=== PATIENT | male | born 1935 ===

== ENCOUNTER 2019-08-03 09:26 | Inpatient (IN) | payer MEDICARE, OTHER ==
[2019-08-04 07:29] LABS: Bilirubin,Urine NEG (Negative); Blood,Urine NEG (Negative); Color,Urine Yellow (Yellow); Mucus,Urine FEW /HPF; Protein,Urine <15 mg/dL mg/dL (Negative); Urobilinogen,Urine < 2.0 mg/dL (<2.0)
[2019-08-04 07:51] LABS: Basophils # (Auto) 0.1 K/mm3 (0.0-0.1); Basophils % (Auto) 0.7 % (0.0-1.8); Eosinophils # (Auto) 0.4 K/mm3 (0.0-0.4); Eosinophils % (Auto) 4.6 % (0.0-4.3); Hematocrit 39.2 % (35.5-45.6); Hemoglobin 13.9 gm/dl (11.8-15.2); Lymphocytes # (Auto) 3.5 K/mm3 (1.2-5.4); Lymphocytes % (Auto) 37.8 % (13.4-35.0); Mean Corpuscular HGB Conc 35 % (32-34); Mean Corpuscular Volume 95 fl (84-94); Monocytes # (Auto) 0.7 K/mm3 (0.0-0.8); Monocytes % (Auto) 7.5 % (0.0-7.3); Platelet Count 238 K/mm3 (140-440); Red Blood Count 4.13 M/mm3 (3.65-5.03)
[2019-08-04 08:07] LABS: Alanine Aminotransferase 26 units/L (7-56); BUN/Creatinine Ratio 13; Blood Urea Nitrogen 10 mg/dL (9-20); Calcium 9.7 mg/dL (8.4-10.2); Chol/HDL Ratio 3.19 %; HDL Cholesterol 47 mg/dL (40-59); Hemolysis Index 11; LDL Cholesterol,Direct 83 mg/dL (50-130)
--- NOTE | 2019-08-04 09:39 | History and Physical Report ---
GP History & Physical - History of Present Illness Date of admission: 08/03/19 Date of Examination: 08/04/19 Reason for Admission: Danger to self, Danger to others, Impaired reality testing Chief Complaint: Suicidal Ideation History of Present Illness: Per admission Nurse: Pt brought in on a stretcher 1240, admitted to 515, a/ o x 2-3 for threatening to shoot himself and harm others. Pt. admits to suicidal and homicidal thoughts, but has no plan. Pt was very angry on getting here, he was trying to leave, stating that he will not stay here, staff spent a lot of time explaining things to him before he claimed down some. Pt. is very hard of hearing, history of Hypertension. dementia, sub aranoid bleed, skin cancer, cardiac catheterization and gall bladder removal. He refused to eat his meal, because he is very upset being here. His skin is intact, but has an old scar on his left posterior head, right abdomen and left thigh. Bruises on rt hand, Lt forearm/hand and rt knee. A tinny red scab on his Lt nose area. pT. ORIENTED TO UNIT AND HE SIGNED ALL ADMISSION DOCUMENTS and change of status to 1012 form. HPI Patient is an 83-year-old retired male with unknown past psychiatric history with past medical history of dementia, subarachnoid bleed, coronary artery disease who presents to the ED for evaluation of bizarre behavior with suicidal and homicidal ideation thoughts. Patient was able to state his name and age appropriately as he says he was born in 1936, and knows his in [facility]. Patient reports coming from home currently stays with his when asked why he is here patient reported he was told by the [employer] to come in for evaluation and was brought in by his . Patient self acknowledges having suicidal and homicidal ideations about 3 days ago said he it was because of life and was dealing with too many things which patient could not explain further. Patient denies any SI HI denies any auditory visual hallucination. Patient reports good sleep, good appetite, denies illicit drug use and denies any disinterest or irritation at the moment. Per patient medication history patient has past psychiatric history of depression. PAST PSYCHIATRIC HISTORY: Diagnoses: None reported Suicide attempts or Self-harm behavior: Denies attempts but SI Prior psychiatric hospitalizations: None reported Substance Abuse history: None reported Previous psychiatric medications tried: Sertraline, trazodone Outpatient treatment: None reported PAST MEDICAL HISTORY: CAD, high blood pressure, BPH Family Psychiatric History: None reported or documented SOCIAL HISTORY Marital Status: Living Arrangements: Lives with Employment Status: Retired Access to guns/weapons: None reported Education: College degree History of Abuse: None reported Legal History: None reported REVIEW OF SYSTEMS Constitutional: Negative for weight loss ENT: Negative for stridor Respiratory: Negative for cough or hemoptysis All other systems reviewed and are negative MENTAL STATUS EXAMINATION General Appearance and Behavior: Age appropriate, good hygiene, wearing appropriate clothes, lying in bed, good contact, cooperative and polite Cooperation: Participating/engaged Psychomotor Behavior:unremarkable and within normal limits Mood: Good Affect and affective range: Congruent with mood Thought Process: Fluent/Logical Thought Content: Within reality Speech: Normal volume, Regular rate and rhythm, pressured, loud volume, soft volume, stutter, paucity of speech, difficulty to understand, abnormalities in production of speech, confused and blocking Intellectual Functioning: Average Suicidal Ideation: Passive Suicidal Homicidal Ideation: Passive Homicidal Impulse Control: Impaired Insight and Judgment: Normal insight and judgment Memory: Normal Attention: Normal Orientation: Alert, oriented, Assessment and Plan - Psychiatric problem (1) Major depression in remission Current Visit: Yes Status: Acute (2) Dementia with behavioral disturbance Current Visit: Yes Status: Acute Physician Certification Treatment Plan Home medications restarted, Start Seroquel 50 mg twice daily, Venlafaxine 37.5 mg BID Patient will be admitted for inpatient psychiatric evaluation, medication adjustment and close monitoring The patient's behavior, mood, sleep and appetite will be closely monitored. Patient will be enrolled in individual and group therapeutic sessions and encouraged to attend. Patient will be provided with a safe and structured environment. Patient's physical health needs will be addressed by the Hospitalist. Hospitalist Consulted Labs including CBC, CMP, Lipid profile and Hemoglobin A1C ordered Social Assessment will be completed and the Speech Language Pathologist Prn will work with patient and family to ensure a suitable and safe disposition Medication adjustment will be made as clinically indicated Usual Wellness Religion/Preservation: - Start Trazodone 50 mg po QHS & 50 mg po QHS PRN between 10 PM & 2 AM for i nsomnia - Start Melatonin 5 mg po QHS to promote circadian rhythm - Start [place]-3 for brain health, reduce impulsivity, and as adjunctive treatment for mood disorder, continue upon discharge given overall benefits. - Start B1 prophylaxis with 200 mg po for 5 days The patient agreed on the treatment plan, understood the risk, benefit, alternative treatment, potential consequence of no treatment, and gave informed consent. - Certification Statement Physician Certification Statement: This is an acknowledgement statement that KIKA HILL is a 83 year old M who requires inpatient psychiatric admission for treatment which could reasonably be expected to improve the patient's condition for Estimated period of time patient will need to remain in the hospital: [7 ] Plan for post-hospital care: [ Outpatient] Legal Status: Voluntary Patient Problems: Current Active Problems Dementia with behavioral disturbance (Acute) Major depression in remission (Acute) Reaction to Hospitalization: Accepting Medications and Allergies Allergies Allergy/AdvReac Type Severity Reaction Status Date / Time No Known Allergies Allergy Unverified 08/03/19 18:43 Home Medications Medication Instructions Recorded Confirmed Last Taken Type Clopidogrel [Plavix] 75 mg PO DAILY 08/03/19 08/03/19 Unknown History Memantine HCl 10 mg PO BID 08/03/19 08/03/19 Unknown History Pravastatin [Pravachol] 20 mg PO QHS 08/03/19 08/03/19 Unknown History Rosuvastatin Calcium 20 mg PO DAILY 08/03/19 08/03/19 Unknown History Sertraline [Zoloft] 50 mg PO DAILY 08/03/19 08/03/19 Unknown History Tamsulosin [Flomax] 0.4 mg PO DAILY 08/03/19 08/03/19 Unknown History Venlafaxine [Effexor] 37.5 mg PO DAILY 08/03/19 08/03/19 Unknown History carvediloL [Coreg] 3.125 mg PO BID 08/03/19 08/03/19 Unknown History Ciprofloxacin HCl [Ciprofloxacin 500 mg PO Q12HR 08/04/19 08/04/19 08/02/19 History TAB] 500 mg Melatonin 5 mg PO QHS 08/04/19 08/04/19 Unknown History traZODone 50 mg PO QHS 08/04/19 08/04/19 Unknown History Results - Results Labs/Vitals: Laboratory Last Values WBC 9.2 K/mm3 (4.5-11.0) 08/04/19 07:24 RBC 4.13 M/mm3 (3.65-5.03) 08/04/19 07:24 Hgb 13.9 gm/dl (11.8-15.2) 08/04/19 07:24 Hct 39.2 % (35.5-45.6) 08/04/19 07:24 MCV 95 fl (84-94) H 08/04/19 07:24 MCH 34 pg (28-32) H 08/04/19 07:24 MCHC 35 % (32-34) H 08/04/19 07:24 RDW 14.0 % (13.2-15.2) 08/04/19 07:24 Plt Count 238 K/mm3 (140-440) 08/04/19 07:24 Lymph % (Auto) 37.8 % (13.4-35.0) H 08/04/19 07:24 [place] % (Auto) 7.5 % (0.0-7.3) H 08/04/19 07:24 Eos % (Auto) 4.6 % (0.0-4.3) H 08/04/19 07:24 Baso % (Auto) 0.7 % (0.0-1.8) 08/04/19 07:24 Lymph # 3.5 K/mm3 (1.2-5.4) 08/04/19 07:24 [place] # 0.7 K/mm3 (0.0-0.8) 08/04/19 07:24 Eos # 0.4 K/mm3 (0.0-0.4) 08/04/19 07:24 Baso # 0.1 K/mm3 (0.0-0.1) 08/04/19 07:24 Seg Neutrophils % 49.4 % (40.0-70.0) 08/04/19 07:24 Seg Neutrophils # 4.5 K/mm3 (1.8-7.7) 08/04/19 07:24 Sodium 140 mmol/L (137-145) 08/04/19 07:24 Potassium 3.9 mmol/L (3.6-5.0) 08/04/19 07:24 Chloride 104.2 mmol/L (98-107) 08/04/19 07:24 Carbon Dioxide 22 mmol/L (22-30) 08/04/19 07:24 Anion Gap 18 mmol/L 08/04/19 07:24 BUN 10 mg/dL (9-20) 08/04/19 07:24 Creatinine 0.8 mg/dL (0.8-1.5) 08/04/19 07:24 Estimated GFR > 60 ml/min 08/04/19 07:24 BUN/Creatinine Ratio 13 % 08/04/19 07:24 Glucose 105 mg/dL (75-100) H 08/04/19 07:24 POC Glucose 106 (70-105) H 08/03/19 14:25 Hemoglobin A1c 5.5 % (4-6) 08/04/19 07:24 Calcium 9.7 mg/dL (8.4-10.2) 08/04/19 07:24 Total Bilirubin 0.60 mg/dL (0.1-1.2) 08/04/19 07:24 AST 23 units/L (5-40) 08/04/19 07:24 ALT 26 units/L (7-56) 08/04/19 07:24 Alkaline Phosphatase 130 units/L (35-129) H 08/04/19 07:24 Total Protein 7.4 g/dL (6.3-8.2) 08/04/19 07:24 Albumin 4.0 g/dL (3.9-5) 08/04/19 07:24 Albumin/Globulin Ratio 1.2 % 08/04/19 07:24 Triglycerides 171 mg/dL (2-149) H 08/04/19 07:24 Cholesterol 150 mg/dL (50-199) 08/04/19 07:24 LDL Cholesterol Direct 83 mg/dL (50-130) 08/04/19 07:24 HDL Cholesterol 47 mg/dL (40-59) 08/04/19 07:24 Cholesterol/HDL Ratio 3.19 % 08/04/19 07:24 TSH 3.120 mlU/mL (0.270-4.200) 08/04/19 07:24 Thyroxine (T4) 6.6 ug/dL (4.0-12.0) 08/04/19 07:24 Urine Color Yellow (Yellow) 08/04/19 06:48 Urine Turbidity Clear (Clear) 08/04/19 06:48 Urine pH 6.0 (5.0-7.0) 08/04/19 06:48 Ur Specific Mobile 1.009 (1.003-1.030) 08/04/19 06:48 Urine Protein <15 mg/dl mg/dL (Negative) 08/04/19 06:48 Urine Glucose (UA) Neg mg/dL (Negative) 08/04/19 06:48 Urine Ketones Neg mg/dL (Negative) 08/04/19 06:48 Urine Blood Neg (Negative) 08/04/19 06:48 Urine Nitrite Neg (Negative) 08/04/19 06:48 Urine Bilirubin Neg (Negative) 08/04/19 06:48 Urine Urobilinogen < 2.0 mg/dL (<2.0) 08/04/19 06:48 Ur Leukocyte Esterase Neg (Negative) 08/04/19 06:48 Urine WBC (Auto) 3.0 /HPF (0.0-6.0) 08/04/19 06:48 Urine RBC (Auto) 4.0 /HPF (0.0-6.0) 08/04/19 06:48 Urine Mucus Few /HPF 08/04/19 06:48 Last Vital Signs Temp 98.3 F 08/04/19 08:37 Pulse 86 08/04/19 08:37 Resp 20 08/03/19 19:33 BP 136/98 08/04/19 08:37 Pulse Ox 95 08/04/19 08:37 Physical Examination - Constitutional Vitals: Vital Signs Temp Pulse Resp BP Pulse Ox 98.3 F 86 20 136/98 95 08/04/19 08:37 08/04/19 08:37 08/03/19 19:33 08/04/19 08:37 08/04/19 08:37 Temperature -Last 24 Hours Temperature 98.3 F Temperature 97.7 F Temperature 99.3 F Temperature 98.6 F Mental Status Exam - Vital signs Last Vital Signs Temp 98.3 F 08/04/19 08:37 Pulse 86 08/04/19 08:37 Resp 20 08/03/19 19:33 BP 136/98 08/04/19 08:37 Pulse Ox 95 08/04/19 08:37 Assessment and Plan - Psychiatric problem (1) Major depression in remission Current Visit: Yes Status: Acute (2) Dementia with behavioral disturbance Current Visit: Yes Status: Acute Physician Certification - Certification Statement Physician Certification Statement: This is an acknowledgement statement that KIKA HILL is a 83 year old M who requires inpatient psychiatric admission for treatment which could reasonably be expected to improve the patient's condition for Estimated period of time patient will need to remain in the hospital: [ ] Plan for post-hospital care: [ ]
[2019-08-04] MEDS: VENLAFAXINE 37.5 MG TAB PO SCH ×2 (10:17→21:32)
[2019-08-04] MEDS: TAMSULOSIN 0.4 MG CAP PO SCH (10:17)
[2019-08-04] MEDS: SULFAMETHOXAZOLE/TRIMETHOPRIM 800/160MG DS TAB PO SCH ×2 (10:17→21:29)
[2019-08-04] MEDS: QUEtiapine 25 MG TAB PO SCH ×2 (10:18→21:32)
[2019-08-04] MEDS: CLOPIDOGREL 75 MG TAB PO SCH (10:18)
[2019-08-04] MEDS: carvediloL 3.125 MG TAB PO SCH ×2 (10:18→21:30)
--- NOTE | 2019-08-04 11:32 | Consultation ---
History of Present Illness - Reason for Consult Consult date: 08/04/19 Medical mx - History of Present Illness Patient is an 83-year-old retired male with unknown past psychiatric history with past medical history of dementia, subarachnoid bleed, coronary artery disease who presents to the ED for evaluation of bizarre behavior with suicidal and homicidal ideation thoughts. Patient self acknowledges having suicidal and homicidal ideations, denies any auditory visual hallucination. Patient reports good sleep, good appetite, denies chest pain, SOB. Patient is currently admitted to inpatient psych unit and hospitalist service has been consulted for medical management. Review of System: Constitutional: no fever, no chills, no weight loss Ears, eyes, nose, mouth and throat: no nasal congestion, no nasal discharge, no sinus pressure, no vision change, no red eye. Neck: No neck pain or rigidity. Cardiovascular: No chest pain, no orthopnea, no palpitations, no leg swelling Respiratory: No shortness of breath, no cough, no congestion, no wheezing Gastrointestinal: no abdominal pain, no nausea, no vomiting Genitourinary : no dysuria, no hematuria Musculoskeletal: no joint swelling or muscle ache Integumentary: no rash, no pruritis Neurological: no parathesias, no numbness, no tingling Endocrine: no cold or heat intolerance, no polyuria or polydipsia Hematologic/Lymphatic: no easy bruising, no easy bleeding, no gland swelling Allergic/Immunologic: no urticaria, no angioedema. Past History Past Medical History: CAD, hypertension Past Surgical History: Other (cardiac cath) Social history: denies: smoking, alcohol abuse Family history: no significant family history Medications and Allergies Allergies Allergy/AdvReac Type Severity Reaction Status Date / Time No Known Allergies Allergy Unverified 08/03/19 18:43 Home Medications Medication Instructions Recorded Confirmed Last Taken Type Clopidogrel [Plavix] 75 mg PO DAILY 08/03/19 08/03/19 Unknown History Memantine HCl 10 mg PO BID 08/03/19 08/03/19 Unknown History Pravastatin [Pravachol] 20 mg PO QHS 08/03/19 08/03/19 Unknown History Rosuvastatin Calcium 20 mg PO DAILY 08/03/19 08/03/19 Unknown History Sertraline [Zoloft] 50 mg PO DAILY 08/03/19 08/03/19 Unknown History Tamsulosin [Flomax] 0.4 mg PO DAILY 08/03/19 08/03/19 Unknown History Venlafaxine [Effexor] 37.5 mg PO DAILY 08/03/19 08/03/19 Unknown History carvediloL [Coreg] 3.125 mg PO BID 08/03/19 08/03/19 Unknown History Ciprofloxacin HCl [Ciprofloxacin 500 mg PO Q12HR 08/04/19 08/04/19 08/02/19 Hist ory TAB] 500 mg Melatonin 5 mg PO QHS 08/04/19 08/04/19 Unknown History traZODone 50 mg PO QHS 08/04/19 08/04/19 Unknown History Active Meds: Active Medications Carvedilol (Coreg) 3.125 mg PO BID [facility] Last Admin: 08/04/19 10:18 Dose: 3.125 mg Documented by: Clopidogrel Bisulfate (Plavix) 75 mg PO QDAY [facility] Last Admin: 08/04/19 10:18 Dose: 75 mg Documented by: Melatonin (Melatonin) 5 mg PO QHS@2100 [facility] Methylphenidate HCl (Ritalin) 10 mg PO BID@0800,1500 [facility] Quetiapine Fumarate (Seroquel) 50 mg PO BID [facility] Last Admin: 08/04/19 10:18 Dose: 50 mg Documented by: Tamsulosin HCl (Flomax) 0.4 mg PO QDAY [facility] Last Admin: 08/04/19 10:17 Dose: 0.4 mg Documented by: Trazodone HCl (Desyrel) 50 mg PO QHS [facility] Trimethoprim/Sulfamethoxazole (Bactrim Ds) 1 each PO Q12HR [facility] Stop: 08/07/19 10:59 Last Admin: 08/04/19 10:17 Dose: 1 each Documented by: Venlafaxine HCl (Effexor) 37.5 mg PO BID [facility] Last Admin: 08/04/19 10:17 Dose: 37.5 mg Documented by: Exam - Physical Exam Narrative exam: GENERAL: well-developed and well-nourished elderly white male lying on bed memo eared to be in no discomfort. HEENT: Normocephalic. Atraumatic. No conjunctival congestion or icterus. Patient has moist mucous membranes. NECK: Supple. Trachea midline. CHEST/LUNGS: Clear to auscultated bilaterally, breathing nonlabored. No wheezes crackles or rhonchi. HEART/CARDIOVASCULAR: Regular in rate and rhythm. S1 and S2 positive. ABDOMEN: Abdomen is soft, nontender. Patient has normal bowel sounds. SKIN: There is no rash. Warm and dry. NEURO: No focal motor deficit. Follows command. MUSCULOSKELETAL: No joint effusion or tenderness. EXTRIMITY: No edema, no cyanosis or clubbing. PSYCH: Cooperative. - Constitutional Vitals: Temp Pulse Resp BP Pulse Ox 98.3 F 86 20 136/98 95 08/04/19 08:37 08/04/19 10:18 08/03/19 19:33 08/04/19 10:18 08/04/19 08:37 Results - Labs CBC & Chem 7: 08/04/19 07:24 08/04/19 07:24 Labs: Abnormal lab results 08/03/19 08/04/19 08/04/19 Range/Units 14:25 07:24 07:24 MCV 95 H (84-94) fl MCH 34 H (28-32) pg MCHC 35 H (32-34) % Lymph % (Auto) 37.8 H (13.4-35.0) % [place] % (Auto) 7.5 H (0.0-7.3) % Eos % (Auto) 4.6 H (0.0-4.3) % Glucose 105 H (75-100) mg/dL POC Glucose 106 H (70-105) Alkaline Phosphatase 130 H (35-129) units/L Triglycerides 171 H (2-149) mg/dL Assessment and Plan Suicidal attempt History of depression - Mx per primary History of subarachnoid bleed -No acute issue, stable Other chronic issues CAD, HTN, BPH, HLD - cont medical Mx
[2019-08-04] MEDS: METHYLPHENIDATE 5 MG TAB PO SCH (15:23)
[2019-08-04] MEDS: traZODone 50 MG TAB PO SCH (21:34)
[2019-08-04] MEDS: MELATONIN 5 MG TAB PO SCH (23:17)
--- NOTE | 2019-08-05 07:28 | Progress Note ---
Subjective Date of service: 08/05/19 Principal diagnosis: Dementia/Suicidal thoughts Subjective Comment: The patient's medical record was reviewed at the patient's progress was discussed with the nursing staff. The nurse note states the patient is calm and cooperative with staff. The patient is compliant with medication. Sometime the patient is confused and disoriented, asking how he can get out. The patient sometime, walks about in hallway with wheelchair. He needs constant redirections. He denies si/hi. The patient spoke with his on the phone several times asking when he can get out of here. The patient did not attend groups. During my interview with the patient he was lying in bed asleep. Easily arouses. He is confused. He makes fair eye contact. He says his night "went good." When asking the patient why he was admitted into the hospital, he replied "I don't know." He says his appetite is "good" and denies any problems with his sleep. When asked about any suicidal thoughts, the patient first replied, "no." He then said, "I don't know." I asked the patient again, was he having any thoughts of self harm, he then replied, "last night, but no, not this morning." He denies having a plan. He denies hallucinations of any kind. Reason for continued inpatient treatment: The patient continues to have thoughts of self harm. REVIEW OF SYSTEMS Constitutional: Negative for weight loss ENT: Negative for stridor Respiratory: Negative for cough or hemoptysis All other systems reviewed and are negative MENTAL STATUS EXAMINATION General Appearance: Lying in bed. Dressed appropriately Behavior: Calm and cooperative. Fair eye contact. 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 Will continue q15 min safety checks. Will encourage the use of environmental modifications and non-pharmacologic approaches for the management of behavioral and psychological symptoms. Will continue current psych medications Monitor for medication side effects. Most recent medication adjustments: Increased Effexor 50mg po BID to decrease depressive symptoms The patient will continue on medications for physical illnesses, and Hospitalist will closely monitor these Continue intensive physical and occupational therapies. Monitor patient's mood, sleep, appetite, and behavior closely. Encourage patient to participate in individual and group therapeutic sessions on the [place]. The patient's behavior, mood, sleep and appetite will be closely monitored. Patient will be enrolled in individual and group therapeutic sessions and encouraged to attend. Patient will be provided with a safe and structured environment. Patient's physical health needs will be addressed by the Hospitalist. Hospitalist Consulted Labs including CBC, CMP, Lipid profile and Hemoglobin A1C ordered Social Assessment will be completed and the Actuarial Clerk will work with patient and family to ensure a suitable and safe disposition The patient agreed on the treatment plan, understood the risk, benefit, alternative treatment, potential consequence of no treatment, and gave informed consent. Estimated period of time patient will need to remain in the hospital: [5] Plan for post-hospital care: [ Outpatient] Medications and Allergies Allergies Allergy/AdvReac Type Severity Reaction Status Date / Time No Known Allergies Allergy Unverified 08/03/19 18:43 Home Medications Medication Instructions Recorded Confirmed Last Taken Type Clopidogrel [Plavix] 75 mg PO DAILY 08/03/19 08/03/19 Unknown History Memantine HCl 10 mg PO BID 08/03/19 08/03/19 Unknown History Pravastatin [Pravachol] 20 mg PO QHS 08/03/19 08/03/19 Unknown History Rosuvastatin Calcium 20 mg PO DAILY 08/03/19 08/03/19 Unknown History Sertraline [Zoloft] 50 mg PO DAILY 08/03/19 08/03/19 Unknown History Tamsulosin [Flomax] 0.4 mg PO DAILY 08/03/19 08/03/19 Unknown History Venlafaxine [Effexor] 37.5 mg PO DAILY 08/03/19 08/03/19 Unknown History carvediloL [Coreg] 3.125 mg PO BID 08/03/19 08/03/19 Unknown History Ciprofloxacin HCl [Ciprofloxacin 500 mg PO Q12HR 08/04/19 08/04/19 08/02/19 History TAB] 500 mg Melatonin 5 mg PO QHS 08/04/19 08/04/19 Unknown History traZODone 50 mg PO QHS 08/04/19 08/04/19 Unknown History Active Meds: Active Medications Carvedilol (Coreg) 3.125 mg PO BID [facility] Last Admin: 08/04/19 21:30 Dose: 3.125 mg Documented by: Clopidogrel Bisulfate (Plavix) 75 mg PO QDAY [facility] Last Admin: 08/04/19 10:18 Dose: 75 mg Documented by: Melatonin (Melatonin) 5 mg PO QHS@2100 [facility] Last Admin: 08/04/19 23:17 Dose: 5 mg Documented by: Methylphenidate HCl (Ritalin) 10 mg PO BID@0800,1500 [facility] Last Admin: 08/04/19 15:23 Dose: 10 mg Documented by: Quetiapine Fumarate (Seroquel) 50 mg PO BID [facility] Last Admin: 08/04/19 21:32 Dose: 50 mg Documented by: Tamsulosin HCl (Flomax) 0.4 mg PO QDAY [facility] Last Admin: 08/04/19 10:17 Dose: 0.4 mg Documented by: Trazodone HCl (Desyrel) 50 mg PO QHS [facility] Last Admin: 08/04/19 21:34 Dose: 50 mg Documented by: Trimethoprim/Sulfamethoxazole (Bactrim Ds) 1 each PO Q12HR [facility] Stop: 08/07/19 10:59 Last Admin: 08/04/19 21:29 Dose: 1 each Documented by: Venlafaxine HCl (Effexor) 37.5 mg PO BID [facility] Last Admin: 08/04/19 21:32 Dose: 37.5 mg Documented by: Results - Results Labs/Vitals: Laboratory Last Values WBC 9.2 K/mm3 (4.5-11.0) 08/04/19 07:24 RBC 4.13 M/mm3 (3.65-5.03) 08/04/19 07:24 Hgb 13.9 gm/dl (11.8-15.2) 08/04/19 07:24 Hct 39.2 % (35.5-45.6) 08/04/19 07:24 MCV 95 fl (84-94) H 08/04/19 07:24 MCH 34 pg (28-32) H 08/04/19 07:24 MCHC 35 % (32-34) H 08/04/19 07:24 RDW 14.0 % (13.2-15.2) 08/04/19 07:24 Plt Count 238 K/mm3 (140-440) 08/04/19 07:24 Lymph % (Auto) 37.8 % (13.4-35.0) H 08/04/19 07:24 [place] % (Auto) 7.5 % (0.0-7.3) H 08/04/19 07:24 Eos % (Auto) 4.6 % (0.0-4.3) H 08/04/19 07:24 Baso % (Auto) 0.7 % (0.0-1.8) 08/04/19 07:24 Lymph # 3.5 K/mm3 (1.2-5.4) 08/04/19 07:24 [place] # 0.7 K/mm3 (0.0-0.8) 08/04/19 07:24 Eos # 0.4 K/mm3 (0.0-0.4) 08/04/19 07:24 Baso # 0.1 K/mm3 (0.0-0.1) 08/04/19 07:24 Seg Neutrophils % 49.4 % (40.0-70.0) 08/04/19 07:24 Seg Neutrophils # 4.5 K/mm3 (1.8-7.7) 08/04/19 07:24 Sodium 140 mmol/L (137-145) 08/04/19 07:24 Potassium 3.9 mmol/L (3.6-5.0) 08/04/19 07:24 Chloride 104.2 mmol/L (98-107) 08/04/19 07:24 Carbon Dioxide 22 mmol/L (22-30) 08/04/19 07:24 Anion Gap 18 mmol/L 08/04/19 07:24 BUN 10 mg/dL (9-20) 08/04/19 07:24 Creatinine 0.8 mg/dL (0.8-1.5) 08/04/19 07:24 Estimated GFR > 60 ml/min 08/04/19 07:24 BUN/Creatinine Ratio 13 % 08/04/19 07:24 Glucose 105 mg/dL (75-100) H 08/04/19 07:24 POC Glucose 106 (70-105) H 08/03/19 14:25 Hemoglobin A1c 5.5 % (4-6) 08/04/19 07:24 Calcium 9.7 mg/dL (8.4-10.2) 08/04/19 07:24 Total Bilirubin 0.60 mg/dL (0.1-1.2) 08/04/19 07:24 AST 23 units/L (5-40) 08/04/19 07:24 ALT 26 units/L (7-56) 08/04/19 07:24 Alkaline Phosphatase 130 units/L (35-129) H 08/04/19 07:24 Total Protein 7.4 g/dL (6.3-8.2) 08/04/19 07:24 Albumin 4.0 g/dL (3.9-5) 08/04/19 07:24 Albumin/Globulin Ratio 1.2 % 08/04/19 07:24 Triglycerides 171 mg/dL (2-149) H 08/04/19 07:24 Cholesterol 150 mg/dL (50-199) 08/04/19 07:24 LDL Cholesterol Direct 83 mg/dL (50-130) 08/04/19 07:24 HDL Cholesterol 47 mg/dL (40-59) 08/04/19 07:24 Cholesterol/HDL Ratio 3.19 % 08/04/19 07:24 TSH 3.120 mlU/mL (0.270-4.200) 08/04/19 07:24 Thyroxine (T4) 6.6 ug/dL (4.0-12.0) 08/04/19 07:24 Urine Color Yellow (Yellow) 08/04/19 06:48 Urine Turbidity Clear (Clear) 08/04/19 06:48 Urine pH 6.0 (5.0-7.0) 08/04/19 06:48 Ur Specific [place] 1.009 (1.003-1.030) 08/04/19 06:48 Urine Protein <15 mg/dl mg/dL (Negative) 08/04/19 06:48 Urine Glucose (UA) Neg mg/dL (Negative) 08/04/19 06:48 Urine Ketones Neg mg/dL (Negative) 08/04/19 06:48 Urine Blood Neg (Negative) 08/04/19 06:48 Urine Nitrite Neg (Negative) 08/04/19 06:48 Urine Bilirubin Neg (Negative) 08/04/19 06:48 Urine Urobilinogen < 2.0 mg/dL (<2.0) 08/04/19 06:48 Ur Leukocyte Esterase Neg (Negative) 08/04/19 06:48 Urine WBC (Auto) 3.0 /HPF (0.0-6.0) 08/04/19 06:48 Urine RBC (Auto) 4.0 /HPF (0.0-6.0) 08/04/19 06:48 Urine Mucus Few /HPF 08/04/19 06:48 Last Vital Signs Temp 97.7 F 08/05/19 06:52 Pulse 58 L 08/05/19 06:52 Resp 18 08/05/19 06:52 BP 110/47 08/05/19 06:52 Pulse Ox 96 08/05/19 06:52
[2019-08-05] MEDS ORDERED: VENLAFAXINE 37.5 MG TAB PO SCH (07:47)
[2019-08-05] MEDS: METHYLPHENIDATE 5 MG TAB PO SCH ×2 (08:44→15:06)
[2019-08-05] MEDS: TAMSULOSIN 0.4 MG CAP PO SCH (10:30)
[2019-08-05] MEDS: QUEtiapine 25 MG TAB PO SCH ×2 (10:34→22:40)
[2019-08-05] MEDS: CLOPIDOGREL 75 MG TAB PO SCH (10:34)
[2019-08-05] MEDS: SULFAMETHOXAZOLE/TRIMETHOPRIM 800/160MG DS TAB PO SCH ×2 (10:34→22:53)
[2019-08-05] MEDS: VENLAFAXINE 25 MG TAB PO SCH ×2 (10:34→22:54)
[2019-08-05] MEDS: carvediloL 3.125 MG TAB PO SCH ×2 (12:53→22:47)
[2019-08-05] MEDS: MELATONIN 5 MG TAB PO SCH (22:39)
[2019-08-05] MEDS: traZODone 50 MG TAB PO SCH (22:47)
[2019-08-06] MEDS: METHYLPHENIDATE 5 MG TAB PO SCH ×2 (08:32→15:03)
--- NOTE | 2019-08-06 09:15 | Progress Note ---
Subjective Date of service: 08/06/19 Principal diagnosis: Dementia/Suicidal thoughts Subjective Comment: The patient's medical record was reviewed at the patient's progress was discussed with the nursing staff. During my interview with the patient he was lying in bed asleep. Easily arouses. He is confused. He is calm and cooperative. He says he's "doing good." The patient denies being suicidal or homicidal when asked. He replied, "no, it's too much pleasure here." When asking the patient to elaborate on what he meant, he said, "you people. You, them, other people." He denies hallucinations of any kind. The patient says his appetite is "good" and he slept "well." Called the patient's daughter per request, Babita Wilson (P: [phone]). Discussed the patient's progress and medication history. I made adjustments based on daughter's most current medication history. She also says the patient had been off plavix for about a month due to fall. Spoke with charge nurse to mention to hospitalist once page about another patient. Reason for continued inpatient treatment: The patient continues to have thoughts of self harm. REVIEW OF SYSTEMS Constitutional: Negative for weight loss ENT: Negative for stridor Respiratory: Negative for cough or hemoptysis All other systems reviewed and are negative MENTAL STATUS EXAMINATION General Appearance: Lying in bed. Dressed appropriately Behavior: Calm and cooperative. Fair eye contact. 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 Will continue q15 min safety checks. Will encourage the use of environmental modifications and non-pharmacologic approaches for the management of behavioral and psychological symptoms. Will continue current psych medications Monitor for medication side effects. Most recent medication adjustments: Decreased effexor, d/c trazodone, started home zoloft The patient will continue on medications for physical illnesses, and Hospitalist will closely monitor these Continue intensive physical and occupational therapies. Monitor patient's mood, sleep, appetite, and behavior closely. Encourage patient to participate in individual and group therapeutic sessions on the [place]. The patient's behavior, mood, sleep and appetite will be closely monitored. Patient will be enrolled in individual and group therapeutic sessions and encouraged to attend. Patient will be provided with a safe and structured environment. Patient's physical health needs will be addressed by the Hospitalist. H ospitalist Consulted Labs including CBC, CMP, Lipid profile and Hemoglobin A1C ordered Social Assessment will be completed and the Junior Analyst will work with patient and family to ensure a suitable and safe disposition The patient agreed on the treatment plan, understood the risk, benefit, alternative treatment, potential consequence of no treatment, and gave informed consent. Estimated period of time patient will need to remain in the hospital: [5] Plan for post-hospital care: [ Outpatient] Medications and Allergies Allergies Allergy/AdvReac Type Severity Reaction Status Date / Time No Known Allergies Allergy Unverified 08/03/19 18:43 Home Medications Medication Instructions Recorded Confirmed Last Taken Type Clopidogrel [Plavix] 75 mg PO DAILY 08/03/19 08/03/19 Unknown History Memantine HCl 10 mg PO BID 08/03/19 08/03/19 Unknown History Pravastatin [Pravachol] 20 mg PO QHS 08/03/19 08/03/19 Unknown History Rosuvastatin Calcium 20 mg PO DAILY 08/03/19 08/03/19 Unknown History Sertraline [Zoloft] 50 mg PO DAILY 08/03/19 08/03/19 Unknown History Tamsulosin [Flomax] 0.4 mg PO DAILY 08/03/19 08/03/19 Unknown History Venlafaxine [Effexor] 37.5 mg PO DAILY 08/03/19 08/03/19 Unknown History carvediloL [Coreg] 3.125 mg PO BID 08/03/19 08/03/19 Unknown History Ciprofloxacin HCl [Ciprofloxacin 500 mg PO Q12HR 08/04/19 08/04/19 08/02/19 History TAB] 500 mg Melatonin 5 mg PO QHS 08/04/19 08/04/19 Unknown History traZODone 50 mg PO QHS 08/04/19 08/04/19 Unknown History Active Meds: Active Medications Carvedilol (Coreg) 3.125 mg PO BID [facility] Last Admin: 08/05/19 22:47 Dose: 3.125 mg Documented by: Clopidogrel Bisulfate (Plavix) 75 mg PO QDAY [facility] Last Admin: 08/05/19 10:34 Dose: 75 mg Documented by: Melatonin (Melatonin) 5 mg PO QHS@2100 [facility] Last Admin: 08/05/19 22:39 Dose: 5 mg Documented by: Methylphenidate HCl (Ritalin) 10 mg PO BID@0800,1500 [facility] Last Admin: 08/06/19 08:32 Dose: 10 mg Documented by: Quetiapine Fumarate (Seroquel) 50 mg PO BID [facility] Last Admin: 08/05/19 22:40 Dose: 50 mg Documented by: Tamsulosin HCl (Flomax) 0.4 mg PO QDAY [facility] Last Admin: 08/05/19 10:30 Dose: 0.4 mg Documented by: Trazodone HCl (Desyrel) 50 mg PO QHS [facility] Last Admin: 08/05/19 22:47 Dose: 50 mg Documented by: Trimethoprim/Sulfamethoxazole (Bactrim Ds) 1 each PO Q12HR [facility] Stop: 08/07/19 10:59 Last Admin: 08/05/19 22:53 Dose: 1 each Documented by: Venlafaxine HCl (Effexor) 50 mg PO BID [facility] Last Admin: 08/05/19 22:54 Dose: 50 mg Documented by: Results - Results Labs/Vitals: Laboratory Last Values WBC 9.2 K/mm3 (4.5-11.0) 08/04/19 07:24 RBC 4.13 M/mm3 (3.65-5.03) 08/04/19 07:24 Hgb 13.9 gm/dl (11.8-15.2) 08/04/19 07:24 Hct 39.2 % (35.5-45.6) 08/04/19 07:24 MCV 95 fl (84-94) H 08/04/19 07:24 MCH 34 pg (28-32) H 08/04/19 07:24 MCHC 35 % (32-34) H 08/04/19 07:24 RDW 14.0 % (13.2-15.2) 08/04/19 07:24 Plt Count 238 K/mm3 (140-440) 08/04/19 07:24 Lymph % (Auto) 37.8 % (13.4-35.0) H 08/04/19 07:24 [place] % (Auto) 7.5 % (0.0-7.3) H 08/04/19 07:24 Eos % (Auto) 4.6 % (0.0-4.3) H 08/04/19 07:24 Baso % (Auto) 0.7 % (0.0-1.8) 08/04/19 07:24 Lymph # 3.5 K/mm3 (1.2-5.4) 08/04/19 07:24 [place] # 0.7 K/mm3 (0.0-0.8) 08/04/19 07:24 Eos # 0.4 K/mm3 (0.0-0.4) 08/04/19 07:24 Baso # 0.1 K/mm3 (0.0-0.1) 08/04/19 07:24 Seg Neutrophils % 49.4 % (40.0-70.0) 08/04/19 07:24 Seg Neutrophils # 4.5 K/mm3 (1.8-7.7) 08/04/19 07:24 Sodium 140 mmol/L (137-145) 08/04/19 07:24 Potassium 3.9 mmol/L (3.6-5.0) 08/04/19 07:24 Chloride 104.2 mmol/L (98-107) 08/04/19 07:24 Carbon Dioxide 22 mmol/L (22-30) 08/04/19 07:24 Anion Gap 18 mmol/L 08/04/19 07:24 BUN 10 mg/dL (9-20) 08/04/19 07:24 Creatinine 0.8 mg/dL (0.8-1.5) 08/04/19 07:24 Estimated GFR > 60 ml/min 08/04/19 07:24 BUN/Creatinine Ratio 13 % 08/04/19 07:24 Glucose 105 mg/dL (75-100) H 08/04/19 07:24 POC Glucose 106 (70-105) H 08/03/19 14:25 Hemoglobin A1c 5.5 % (4-6) 08/04/19 07:24 Calcium 9.7 mg/dL (8.4-10.2) 08/04/19 07:24 Total Bilirubin 0.60 mg/dL (0.1-1.2) 08/04/19 07:24 AST 23 units/L (5-40) 08/04/19 07:24 ALT 26 units/L (7-56) 08/04/19 07:24 Alkaline Phosphatase 130 units/L (35-129) H 08/04/19 07:24 Total Protein 7.4 g/dL (6.3-8.2) 08/04/19 07:24 Albumin 4.0 g/dL (3.9-5) 08/04/19 07:24 Albumin/Globulin Ratio 1.2 % 08/04/19 07:24 Triglycerides 171 mg/dL (2-149) H 08/04/19 07:24 Cholesterol 150 mg/dL (50-199) 08/04/19 07:24 LDL Cholesterol Direct 83 mg/dL (50-130) 08/04/19 07:24 HDL Cholesterol 47 mg/dL (40-59) 08/04/19 07:24 Cholesterol/HDL Ratio 3.19 % 08/04/19 07:24 TSH 3.120 mlU/mL (0.270-4.200) 08/04/19 07:24 Thyroxine (T4) 6.6 ug/dL (4.0-12.0) 08/04/19 07:24 Urine Color Yellow (Yellow) 08/04/19 06:48 Urine Turbidity Clear (Clear) 08/04/19 06:48 Urine pH 6.0 (5.0-7.0) 08/04/19 06:48 Ur Specific [place] 1.009 (1.003-1.030) 08/04/19 06:48 Urine Protein <15 mg/dl mg/dL (Negative) 08/04/19 06:48 Urine Glucose (UA) Neg mg/dL (Negative) 08/04/19 06:48 Urine Ketones Neg mg/dL (Negative) 08/04/19 06:48 Urine Blood Neg (Negative) 08/04/19 06:48 Urine Nitrite Neg (Negative) 08/04/19 06:48 Urine Bilirubin Neg (Negative) 08/04/19 06:48 Urine Urobilinogen < 2.0 mg/dL (<2.0) 08/04/19 06:48 Ur Leukocyte Esterase Neg (Negative) 08/04/19 06:48 Urine WBC (Auto) 3.0 /HPF (0.0-6.0) 08/04/19 06:48 Urine RBC (Auto) 4.0 /HPF (0.0-6.0) 08/04/19 06:48 Urine Mucus Few /HPF 08/04/19 06:48 Last Vital Signs Temp 98.5 F 08/06/19 08:46 Pulse 69 08/06/19 08:46 Resp 18 08/06/19 08:46 BP 110/53 08/06/19 08:46 Pulse Ox 97 08/06/19 08:46
[2019-08-06] MEDS: TAMSULOSIN 0.4 MG CAP PO SCH (09:17)
[2019-08-06] MEDS: VENLAFAXINE 25 MG TAB PO SCH (09:17)
[2019-08-06] MEDS: SULFAMETHOXAZOLE/TRIMETHOPRIM 800/160MG DS TAB PO SCH ×2 (09:18→21:02)
[2019-08-06] MEDS: CLOPIDOGREL 75 MG TAB PO SCH (09:18)
[2019-08-06] MEDS: QUEtiapine 25 MG TAB PO SCH (09:18)
[2019-08-06] MEDS: carvediloL 3.125 MG TAB PO SCH ×2 (09:19→21:02)
[2019-08-06] MEDS ORDERED: VENLAFAXINE 25 MG TAB PO SCH (09:29)
[2019-08-06] MEDS ORDERED: MEMANTINE 10 MG TAB PO SCH (10:00)
[2019-08-06] MEDS: SERTRALINE 50 MG TAB PO SCH (10:35)
[2019-08-06] MEDS: VENLAFAXINE 37.5 MG TAB PO SCH (10:36)
[2019-08-06] MEDS: MEMANTINE 10 MG TAB PO SCH (12:05)
[2019-08-06] MEDS: MELATONIN 5 MG TAB PO SCH (21:01)
[2019-08-06] MEDS: PRAVASTATIN 20 MG TAB PO SCH (21:03)
--- NOTE | 2019-08-07 08:15 | Progress Note ---
Subjective Date of service: 08/07/19 Principal diagnosis: Dementia/Suicidal thoughts Subjective Comment: The patient's medical record was reviewed at the patient's progress was discussed with the nursing staff. During my interview with the patient he is sitting in day room. He's dressed appropriately. He's neatly groomed. He is a/o x 2. He's calm, cooperative and pleasant. He reaches to shake my hand as I'm walking up. He states he's feeling "fine." He says his appetite is "better." when asked about thoughts of self- harm, the patient states "well, not so much as before." He then states "that was a stupid thing to say in a hot moment." He says he slept "good." Reason for continued inpatient treatment: The patient appears to have passive thoughts of suicide REVIEW OF SYSTEMS Constitutional: Negative for weight loss ENT: Negative for stridor Respiratory: Negative for cough or hemoptysis All other systems reviewed and are negative MENTAL STATUS EXAMINATION General Appearance: Awake. Dressed appropriately Behavior: Calm and cooperative. 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 Will continue q15 min safety checks. Will encourage the use of environmental modifications and non-pharmacologic approaches for the management of behavioral and psychological symptoms. Will continue current psych medications Monitor for medication side effects. Most recent medication adjustments: No changes today. Started Zoloft yesterday. The patient will continue on medications for physical illnesses, and Hospitalist will closely monitor these Continue intensive physical and occupational therapies. Monitor patient's mood, sleep, appetite, and behavior closely. Encourage patient to participate in individual and group therapeutic sessions on the [place]. The patient's behavior, mood, sleep and appetite will be closely monitored. Patient will be enrolled in individual and group therapeutic sessions and encouraged to attend. Patient will be provided with a safe and structured environment. Patient's physical health needs will be addressed by the Hospitalist. Hospitalist Consulted Labs including CBC, CMP, Lipid profile and Hemoglobin A1C ordered Social Assessment will be completed and the Dial Mounter will work with patient and family to ensure a suitable and safe disposition The patient agreed on the treatment plan, understood the risk, benefit, alternative treatment, potential consequence of no treatment, and gave informed consent. Estimated period of time patient will need to remain in the hospital: [4] Plan for post-hospital care: [ Outpatient] Medications and Allergies Allergies Allergy/AdvReac Type Severity Reaction Status Date / Time No Known Allergies Allergy Unverified 08/03/19 18:43 Home Medications Medication Instructions Recorded Confirmed Last Taken Type Clopidogrel [Plavix] 75 mg PO DAILY 08/03/19 08/03/19 Unknown History Memantine HCl 10 mg PO BID 08/03/19 08/03/19 Unknown History Pravastatin [Pravachol] 20 mg PO QHS 08/03/19 08/03/19 Unknown History Rosuvastatin Calcium 20 mg PO DAILY 08/03/19 08/03/19 Unknown History Sertraline [Zoloft] 50 mg PO DAILY 08/03/19 08/03/19 Unknown History Tamsulosin [Flomax] 0.4 mg PO DAILY 08/03/19 08/03/19 Unknown History Venlafaxine [Effexor] 37.5 mg PO DAILY 08/03/19 08/03/19 Unknown History carvediloL [Coreg] 3.125 mg PO BID 08/03/19 08/03/19 Unknown History Ciprofloxacin HCl [Ciprofloxacin 500 mg PO Q12HR 08/04/19 08/04/19 08/02/19 History TAB] 500 mg Melatonin 5 mg PO QHS 08/04/19 08/04/19 Unknown History traZODone 50 mg PO QHS 08/04/19 08/04/19 Unknown History Active Meds: Active Medications Carvedilol (Coreg) 3.125 mg PO BID [facility] Last Admin: 08/06/19 21:02 Dose: 3.125 mg Documented by: Clopidogrel Bisulfate (Plavix) 75 mg PO QDAY [facility] Last Admin: 08/06/19 09:18 Dose: 75 mg Documented by: Melatonin (Melatonin) 5 mg PO QHS@2100 [facility] Last Admin: 08/06/19 21:01 Dose: 5 mg Documented by: Memantine (Memantine) 10 mg PO 0800 [facility] Memantine (Memantine) 10 mg PO 1200 [facility] Last Admin: 08/06/19 12:05 Dose: 10 mg Documented by: Methylphenidate HCl (Ritalin) 10 mg PO BID@0800,1500 [facility] Last Admin: 08/06/19 15:03 Dose: 10 mg Documented by: Pravastatin Sodium (Pravachol) 20 mg PO QHS [facility] Last Admin: 08/06/19 21:03 Dose: 20 mg Documented by: Sertraline HCl (Zoloft) 50 mg PO DAILY [facility] Last Admin: 08/06/19 10:35 Dose: 50 mg Documented by: Tamsulosin HCl (Flomax) 0.4 mg PO QDAY [facility] Last Admin: 08/06/19 09:17 Dose: 0.4 mg Documented by: Trimethoprim/Sulfamethoxazole (Bactrim Ds) 1 each PO Q12HR [facility] Stop: 08/07/19 10:59 Last Admin: 08/06/19 21:02 Dose: 1 each Documented by: Venlafaxine HCl (Effexor) 37.5 mg PO DAILY [facility] Last Admin: 08/06/19 10:36 Dose: 37.5 mg Documented by: Results - Results Labs/Vitals: Laboratory Last Values WBC 9.2 K/mm3 (4.5-11.0) 08/04/19 07:24 RBC 4.13 M/mm3 (3.65-5.03) 08/04/19 07:24 Hgb 13.9 gm/dl (11.8-15.2) 08/04/19 07:24 Hct 39.2 % (35.5-45.6) 08/04/19 07:24 MCV 95 fl (84-94) H 08/04/19 07:24 MCH 34 pg (28-32) H 08/04/19 07:24 MCHC 35 % (32-34) H 08/04/19 07:24 RDW 14.0 % (13.2-15.2) 08/04/19 07:24 Plt Count 238 K/mm3 (140-440) 08/04/19 07:24 Lymph % (Auto) 37.8 % (13.4-35.0) H 08/04/19 07:24 [place] % (Auto) 7.5 % (0.0-7.3) H 08/04/19 07:24 Eos % (Auto) 4.6 % (0.0-4.3) H 08/04/19 07:24 Baso % (Auto) 0.7 % (0.0-1.8) 08/04/19 07:24 Lymph # 3.5 K/mm3 (1.2-5.4) 08/04/19 07:24 [place] # 0.7 K/mm3 (0.0-0.8) 08/04/19 07:24 Eos # 0.4 K/mm3 (0.0-0.4) 08/04/19 07:24 Baso # 0.1 K/mm3 (0.0-0.1) 08/04/19 07:24 Seg Neutrophils % 49.4 % (40.0-70.0) 08/04/19 07:24 Seg Neutrophils # 4.5 K/mm3 (1.8-7.7) 08/04/19 07:24 Sodium 140 mmol/L (137-145) 08/04/19 07:24 Potassium 3.9 mmol/L (3.6-5.0) 08/04/19 07:24 Chloride 104.2 mmol/L (98-107) 08/04/19 07:24 Carbon Dioxide 22 mmol/L (22-30) 08/04/19 07:24 Anion Gap 18 mmol/L 08/04/19 07:24 BUN 10 mg/dL (9-20) 08/04/19 07:24 Creatinine 0.8 mg/dL (0.8-1.5) 08/04/19 07:24 Estimated GFR > 60 ml/min 08/04/19 07:24 BUN/Creatinine Ratio 13 % 08/04/19 07:24 Glucose 105 mg/dL (75-100) H 08/04/19 07:24 POC Glucose 106 (70-105) H 08/03/19 14:25 Hemoglobin A1c 5.5 % (4-6) 08/04/19 07:24 Calcium 9.7 mg/dL (8.4-10.2) 08/04/19 07:24 Total Bilirubin 0.60 mg/dL (0.1-1.2) 08/04/19 07:24 AST 23 units/L (5-40) 08/04/19 07:24 ALT 26 units/L (7-56) 08/04/19 07:24 Alkaline Phosphatase 130 units/L (35-129) H 08/04/19 07:24 Total Protein 7.4 g/dL (6.3-8.2) 08/04/19 07:24 Albumin 4.0 g/dL (3.9-5) 08/04/19 07:24 Albumin/Globulin Ratio 1.2 % 08/04/19 07:24 Triglycerides 171 mg/dL (2-149) H 08/04/19 07:24 Cholesterol 150 mg/dL (50-199) 08/04/19 07:24 LDL Cholesterol Direct 83 mg/dL (50-130) 08/04/19 07:24 HDL Cholesterol 47 mg/dL (40-59) 08/04/19 07:24 Cholesterol/HDL Ratio 3.19 % 08/04/19 07:24 TSH 3.120 mlU/mL (0.270-4.200) 08/04/19 07:24 Thyroxine (T4) 6.6 ug/dL (4.0-12.0) 08/04/19 07:24 Free T3 Index 3.3 pg/mL (2.3-4.2) 08/04/19 07:24 Urine Color Yellow (Yellow) 08/04/19 06:48 Urine Turbidity Clear (Clear) 08/04/19 06:48 Urine pH 6.0 (5.0-7.0) 08/04/19 06:48 Ur Specific [place] 1.009 (1.003-1.030) 08/04/19 06:48 Urine Protein <15 mg/dl mg/dL (Negative) 08/04/19 06:48 Urine Glucose (UA) Neg mg/dL (Negative) 08/04/19 06:48 Urine Ketones Neg mg/dL (Negative) 08/04/19 06:48 Urine Blood Neg (Negative) 08/04/19 06:48 Urine Nitrite Neg (Negative) 08/04/19 06:48 Urine Bilirubin Neg (Negative) 08/04/19 06:48 Urine Urobilinogen < 2.0 mg/dL (<2.0) 08/04/19 06:48 Ur Leukocyte Esterase Neg (Negative) 08/04/19 06:48 Urine WBC (Auto) 3.0 /HPF (0.0-6.0) 08/04/19 06:48 Urine RBC (Auto) 4.0 /HPF (0.0-6.0) 08/04/19 06:48 Urine Mucus Few /HPF 08/04/19 06:48 Last Vital Signs Temp 97.7 F 08/06/19 22:00 Pulse 76 08/06/19 22:00 Resp 18 08/06/19 22:00 BP 138/65 08/06/19 22:00 Pulse Ox 100 08/06/19 22:00
[2019-08-07] MEDS: MEMANTINE 10 MG TAB PO SCH ×2 (10:19→16:19)
[2019-08-07] MEDS: METHYLPHENIDATE 5 MG TAB PO SCH ×2 (10:19→16:12)
[2019-08-07] MEDS: TAMSULOSIN 0.4 MG CAP PO SCH (10:19)
[2019-08-07] MEDS: VENLAFAXINE 37.5 MG TAB PO SCH (10:19)
[2019-08-07] MEDS: SULFAMETHOXAZOLE/TRIMETHOPRIM 800/160MG DS TAB PO SCH (10:21)
[2019-08-07] MEDS: CLOPIDOGREL 75 MG TAB PO SCH (10:21)
[2019-08-07] MEDS: SERTRALINE 50 MG TAB PO SCH (10:22)
[2019-08-07] MEDS: carvediloL 3.125 MG TAB PO SCH ×2 (10:22→22:11)
[2019-08-07] MEDS: MELATONIN 5 MG TAB PO SCH (22:12)
[2019-08-07] MEDS: PRAVASTATIN 20 MG TAB PO SCH (22:12)
--- NOTE | 2019-08-08 10:15 | Progress Note ---
Subjective Date of service: 08/08/19 Principal diagnosis: Dementia/Suicidal thoughts Subjective Comment: The patient's medical record was reviewed at the patient's progress was discussed with the nursing staff. The nurse note states the patient feels sad and worried about what will happen to him. He does not want to eat dinner right now. During my interview with the patient he is sitting in a wheelchair in his room. He is dressed appropriately and well groomed. He states to me, "I want to see my , but not sure how that's going to work." When asking the patient why he didn't think it would work, he replies, "about going home. I'm not sure if she wants me to come back yet." He denies SI/HI or hallucinations of any kind. He says his sleep "was up and down." He says "I was thinking of today, and going home. That's why I couldn't sleep." I spoke with the patient's spouse, Shira Archibald at [phone] to discuss the patient's progress and discharge status. The patient's spouse states she "feels unsafe with the patient returning home at this time." She says when she "speaks to the patient on the phone he gets very agitated." Mrs. Archibald states that she is "afraid he might hurt someone or himself." She says they have another daughter who is a doctor, Dorothy at [phone]. The spouse states, this daughter feels the same was. Reason for continued inpatient treatment: The spouse states the patient become easily agitated with her. She is fearful that his discharge may pose a safety issue for herself and the patient with him being discharged home at this time. The patient also continues to show signs of underlying depression. REVIEW OF SYSTEMS Constitutional: Negative for weight loss ENT: Negative for stridor Respiratory: Negative for cough or hemoptysis All other systems reviewed and are negative MENTAL STATUS EXAMINATION General Appearance: Awake. Dressed appropriately Behavior: Calm and cooperative. 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 Will continue q15 min safety checks. Will encourage the use of environmental modifications and non-pharmacologic approaches for the management of behavioral and psychological symptoms. Will continue current psych medications Monitor for medication side effects. Most recent medication adjustments: Started Risperidone 0.25mg po daily to improve mood Increased Effexor 37.5mg po BID to decrease underlying depressive symptoms The patient will continue on medications for physical illnesses, and Hospitalist will closely monitor these Continue intensive physical and occupational therapies. Monitor patient's mood, sleep, appetite, and behavior closely. Encourage patient to participate in individual and group therapeutic sessions on the [place]. The patient's behavior, mood, sleep and appetite will be closely monitored. Patient will be enrolled in individual and group therapeutic sessions and encouraged to attend. Patient will be provided with a safe and structured environment. Patient's physical health needs will be addressed by the Hospitalist. Hospit carey Consulted Labs including CBC, CMP, Lipid profile and Hemoglobin A1C ordered Social Assessment will be completed and the Human Resource Advisor will work with patient and family to ensure a suitable and safe disposition The patient agreed on the treatment plan, understood the risk, benefit, alternative treatment, potential consequence of no treatment, and gave informed consent. Estimated period of time patient will need to remain in the hospital: [3] Plan for post-hospital care: [ Outpatient] Medications and Allergies Allergies Allergy/AdvReac Type Severity Reaction Status Date / Time No Known Allergies Allergy Unverified 08/03/19 18:43 Home Medications Medication Instructions Recorded Confirmed Last Taken Type Clopidogrel [Plavix] 75 mg PO DAILY 08/03/19 08/03/19 Unknown History Memantine HCl 10 mg PO BID 08/03/19 08/03/19 Unknown History Pravastatin [Pravachol] 20 mg PO QHS 08/03/19 08/03/19 Unknown History Rosuvastatin Calcium 20 mg PO DAILY 08/03/19 08/03/19 Unknown History Sertraline [Zoloft] 50 mg PO DAILY 08/03/19 08/03/19 Unknown History Tamsulosin [Flomax] 0.4 mg PO DAILY 08/03/19 08/03/19 Unknown History Venlafaxine [Effexor] 37.5 mg PO DAILY 08/03/19 08/03/19 Unknown History carvediloL [Coreg] 3.125 mg PO BID 08/03/19 08/03/19 Unknown History Ciprofloxacin HCl [Ciprofloxacin 500 mg PO Q12HR 08/04/19 08/04/19 08/02/19 History TAB] 500 mg Melatonin 5 mg PO QHS 08/04/19 08/04/19 Unknown History traZODone 50 mg PO QHS 08/04/19 08/04/19 Unknown History Active Meds: Active Medications Carvedilol (Coreg) 3.125 mg PO BID [facility] Last Admin: 08/07/19 22:11 Dose: 3.125 mg Documented by: Clopidogrel Bisulfate (Plavix) 75 mg PO QDAY [facility] Last Admin: 08/07/19 10:21 Dose: 75 mg Documented by: Melatonin (Melatonin) 5 mg PO QHS@2100 [facility] Last Admin: 08/07/19 22:12 Dose: 5 mg Documented by: Memantine (Memantine) 10 mg PO 0800 [facility] Last Admin: 08/07/19 10:19 Dose: 10 mg Documented by: Memantine (Memantine) 10 mg PO 1200 [facility] Last Admin: 08/07/19 16:19 Dose: 10 mg Documented by: Methylphenidate HCl (Ritalin) 10 mg PO BID@0800,1500 [facility] Last Admin: 08/07/19 16:12 Dose: 10 mg Documented by: Pravastatin Sodium (Pravachol) 20 mg PO QHS [facility] Last Admin: 08/07/19 22:12 Dose: 20 mg Documented by: Sertraline HCl (Zoloft) 50 mg PO DAILY [facility] Last Admin: 08/07/19 10:22 Dose: 50 mg Documented by: Tamsulosin HCl (Flomax) 0.4 mg PO QDAY [facility] Last Admin: 08/07/19 10:19 Dose: 0.4 mg Documented by: Venlafaxine HCl (Effexor) 37.5 mg PO DAILY [facility] Last Admin: 08/07/19 10:19 Dose: 37.5 mg Documented by: Results - Results Labs/Vitals: Laboratory Last Values WBC 9.2 K/mm3 (4.5-11.0) 08/04/19 07:24 RBC 4.13 M/mm3 (3.65-5.03) 08/04/19 07:24 Hgb 13.9 gm/dl (11.8-15.2) 08/04/19 07:24 Hct 39.2 % (35.5-45.6) 08/04/19 07:24 MCV 95 fl (84-94) H 08/04/19 07:24 MCH 34 pg (28-32) H 08/04/19 07:24 MCHC 35 % (32-34) H 08/04/19 07:24 RDW 14.0 % (13.2-15.2) 08/04/19 07:24 Plt Count 238 K/mm3 (140-440) 08/04/19 07:24 Lymph % (Auto) 37.8 % (13.4-35.0) H 08/04/19 07:24 [place] % (Auto) 7.5 % (0.0-7.3) H 08/04/19 07:24 Eos % (Auto) 4.6 % (0.0-4.3) H 08/04/19 07:24 Baso % (Auto) 0.7 % (0.0-1.8) 08/04/19 07:24 Lymph # 3.5 K/mm3 (1.2-5.4) 08/04/19 07:24 [place] # 0.7 K/mm3 (0.0-0.8) 08/04/19 07:24 Eos # 0.4 K/mm3 (0.0-0.4) 08/04/19 07:24 Baso # 0.1 K/mm3 (0.0-0.1) 08/04/19 07:24 Seg Neutrophils % 49.4 % (40.0-70.0) 08/04/19 07:24 Seg Neutrophils # 4.5 K/mm3 (1.8-7.7) 08/04/19 07:24 Sodium 140 mmol/L (137-145) 08/04/19 07:24 Potassium 3.9 mmol/L (3.6-5.0) 08/04/19 07:24 Chloride 104.2 mmol/L (98-107) 08/04/19 07:24 Carbon Dioxide 22 mmol/L (22-30) 08/04/19 07:24 Anion Gap 18 mmol/L 08/04/19 07:24 BUN 10 mg/dL (9-20) 08/04/19 07:24 Creatinine 0.8 mg/dL (0.8-1.5) 08/04/19 07:24 Estimated GFR > 60 ml/min 08/04/19 07:24 BUN/Creatinine Ratio 13 % 08/04/19 07:24 Glucose 105 mg/dL (75-100) H 08/04/19 07:24 POC Glucose 106 (70-105) H 08/03/19 14:25 Hemoglobin A1c 5.5 % (4-6) 08/04/19 07:24 Calcium 9.7 mg/dL (8.4-10.2) 08/04/19 07:24 Total Bilirubin 0.60 mg/dL (0.1-1.2) 08/04/19 07:24 AST 23 units/L (5-40) 08/04/19 07:24 ALT 26 units/L (7-56) 08/04/19 07:24 Alkaline Phosphatase 130 units/L (35-129) H 08/04/19 07:24 Total Protein 7.4 g/dL (6.3-8.2) 08/04/19 07:24 Albumin 4.0 g/dL (3.9-5) 08/04/19 07:24 Albumin/Globulin Ratio 1.2 % 08/04/19 07:24 Triglycerides 171 mg/dL (2-149) H 08/04/19 07:24 Cholesterol 150 mg/dL (50-199) 08/04/19 07:24 LDL Cholesterol Direct 83 mg/dL (50-130) 08/04/19 07:24 HDL Cholesterol 47 mg/dL (40-59) 08/04/19 07:24 Cholesterol/HDL Ratio 3.19 % 08/04/19 07:24 TSH 3.120 mlU/mL (0.270-4.200) 08/04/19 07:24 Thyroxine (T4) 6.6 ug/dL (4.0-12.0) 08/04/19 07:24 Free T3 Index 3.3 pg/mL (2.3-4.2) 08/04/19 07:24 Urine Color Yellow (Yellow) 08/04/19 06:48 Urine Turbidity Clear (Clear) 08/04/19 06:48 Urine pH 6.0 (5.0-7.0) 08/04/19 06:48 Ur Specific [place] 1.009 (1.003-1.030) 08/04/19 06:48 Urine Protein <15 mg/dl mg/dL (Negative) 08/04/19 06:48 Urine Glucose (UA) Neg mg/dL (Negative) 08/04/19 06:48 Urine Ketones Neg mg/dL (Negative) 08/04/19 06:48 Urine Blood Neg (Negative) 08/04/19 06:48 Urine Nitrite Neg (Negative) 08/04/19 06:48 Urine Bilirubin Neg (Negative) 08/04/19 06:48 Urine Urobilinogen < 2.0 mg/dL (<2.0) 08/04/19 06:48 Ur Leukocyte Esterase Neg (Negative) 08/04/19 06:48 Urine WBC (Auto) 3.0 /HPF (0.0-6.0) 08/04/19 06:48 Urine RBC (Auto) 4.0 /HPF (0.0-6.0) 08/04/19 06:48 Urine Mucus Few /HPF 08/04/19 06:48 Last Vital Signs Temp 98.7 F 08/07/19 22:00 Pulse 85 08/07/19 19:40 Resp 18 08/07/19 22:00 BP 116/53 08/07/19 22:11 Pulse Ox 98 08/07/19 22:00
[2019-08-08] MEDS: CLOPIDOGREL 75 MG TAB PO SCH (10:49)
[2019-08-08] MEDS: SERTRALINE 50 MG TAB PO SCH (10:50)
[2019-08-08] MEDS: MEMANTINE 10 MG TAB PO SCH ×2 (10:50→12:56)
[2019-08-08] MEDS: TAMSULOSIN 0.4 MG CAP PO SCH (10:50)
[2019-08-08] MEDS: METHYLPHENIDATE 5 MG TAB PO SCH ×2 (10:51→14:24)
[2019-08-08] MEDS: carvediloL 3.125 MG TAB PO SCH ×2 (10:53→21:31)
[2019-08-08] MEDS: risperiDONE 0.25 MG TAB PO SCH (11:01)
[2019-08-08] MEDS: PRAVASTATIN 20 MG TAB PO SCH (21:30)
[2019-08-08] MEDS: MELATONIN 5 MG TAB PO SCH (21:31)
[2019-08-08] MEDS: VENLAFAXINE 37.5 MG TAB PO SCH (21:31)
--- NOTE | 2019-08-09 09:07 | Progress Note ---
Subjective Date of service: 08/09/19 Principal diagnosis: Dementia/Suicidal thoughts Subjective Comment: The patient's medical record was reviewed at the patient's progress was discussed with the nursing staff. During my interview with the patient he is lying in bed. He is awake and confused. The patient thought he was at home. He states "I feel good" when asked. When asked had he been calm throughout the night, he replied, "everybody gets agitated sometimes." He denies SI/HI. He also denies any hallucinations of any kind. The patient says his appetite is "fine." He says he "slept good." Reason for continued inpatient treatment: The patient has improved signif icantly. But his spouse says he becomes easily agitated with her over the phone, and she has safety concerns for the patient and herself. REVIEW OF SYSTEMS Constitutional: Negative for weight loss ENT: Negative for stridor Respiratory: Negative for cough or hemoptysis All other systems reviewed and are negative MENTAL STATUS EXAMINATION General Appearance: Awake. Dressed appropriately Behavior: Calm and cooperative. 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 Will continue q15 min safety checks. Will encourage the use of environmental modifications and non-pharmacologic approaches for the management of behavioral and psychological symptoms. Will continue current psych medications Monitor for medication side effects. Most recent medication adjustments: No changes made today Risperidone 0.25mg po daily to improve mood and decrease irritability (yesterday) Effexor 37.5mg po BID to decrease underlying depressive symptoms (yesterday) The patient will continue on medications for physical illnesses, and Hospitalist will closely monitor these Continue intensive physical and occupational therapies. Monitor patient's mood, sleep, appetite, and behavior closely. Encourage patient to participate in individual and group therapeutic sessions on the [place]. The patient's behavior, mood, sleep and appetite will be closely monitored. Patient will be enrolled in individual and group therapeutic sessions and encouraged to attend. Patient will be provided with a safe and structured environment. Patient's physical health needs will be addressed by the Hospitalist. Hospitalist Consulted Labs including CBC, CMP, Lipid profile and Hemoglobin A1C ordered Social Assessment will be completed and the Cooker Casing will work with patient and family to ensure a suitable and safe disposition The patient agreed on the treatment plan, understood the risk, benefit, alternative treatment, potential consequence of no treatment, and gave informed consent. Estimated period of time patient will need to remain in the hospital: [3] Plan for post-hospital care: [ Outpatient] Medications and Allergies Allergies Allergy/AdvReac Type Severity Reaction Status Date / Time No Known Allergies Allergy Unverified 08/03/19 18:43 Home Medications Medication Instructions Recorded Confirmed Last Taken Type Clopidogrel [Plavix] 75 mg PO DAILY 08/03/19 08/03/19 Unknown History Memantine HCl 10 mg PO BID 08/03/19 08/03/19 Unknown History Pravastatin [Pravachol] 20 mg PO QHS 08/03/19 08/03/19 Unknown History Rosuvastatin Calcium 20 mg PO DAILY 08/03/19 08/03/19 Unknown History Sertraline [Zoloft] 50 mg PO DAILY 08/03/19 08/03/19 Unknown History Tamsulosin [Flomax] 0.4 mg PO DAILY 08/03/19 08/03/19 Unknown History Venlafaxine [Effexor] 37.5 mg PO DAILY 08/03/19 08/03/19 Unknown History carvediloL [Coreg] 3.125 mg PO BID 08/03/19 08/03/19 Unknown History Ciprofloxacin HCl [Ciprofloxacin 500 mg PO Q12HR 08/04/19 08/04/19 08/02/19 History TAB] 500 mg Melatonin 5 mg PO QHS 08/04/19 08/04/19 Unknown History traZODone 50 mg PO QHS 08/04/19 08/04/19 Unknown History Active Meds: Active Medications Carvedilol (Coreg) 3.125 mg PO BID [facility] Last Admin: 08/08/19 21:31 Dose: 3.125 mg Documented by: Clopidogrel Bisulfate (Plavix) 75 mg PO QDAY [facility] Last Admin: 08/08/19 10:49 Dose: 75 mg Documented by: Melatonin (Melatonin) 5 mg PO QHS@2100 [facility] Last Admin: 08/08/19 21:31 Dose: 5 mg Documented by: Memantine (Memantine) 10 mg PO 0800 [facility] Last Admin: 08/08/19 10:50 Dose: 10 mg Documented by: Memantine (Memantine) 10 mg PO 1200 [facility] Last Admin: 08/08/19 12:56 Dose: 10 mg Documented by: Methylphenidate HCl (Ritalin) 10 mg PO BID@0800,1500 [facility] Last Admin: 08/08/19 14:24 Dose: 10 mg Documented by: Pravastatin Sodium (Pravachol) 20 mg PO QHS [facility] Last Admin: 08/08/19 21:30 Dose: 20 mg Documented by: Risperidone (Risperdal) 0.25 mg PO DAILY [facility] Last Admin: 08/08/19 11:01 Dose: 0.25 mg Documented by: Sertraline HCl (Zoloft) 50 mg PO DAILY [facility] Last Admin: 08/08/19 10:50 Dose: 50 mg Documented by: Tamsulosin HCl (Flomax) 0.4 mg PO QDAY [facility] Last Admin: 08/08/19 10:50 Dose: 0.4 mg Documented by: Venlafaxine HCl (Effexor) 37.5 mg PO BID [facility] Last Admin: 08/08/19 21:31 Dose: 37.5 mg Documented by: Results - Results Labs/Vitals: Laboratory Last Values WBC 9.2 K/mm3 (4.5-11.0) 08/04/19 07:24 RBC 4.13 M/mm3 (3.65-5.03) 08/04/19 07:24 Hgb 13.9 gm/dl (11.8-15.2) 08/04/19 07:24 Hct 39.2 % (35.5-45.6) 08/04/19 07:24 MCV 95 fl (84-94) H 08/04/19 07:24 MCH 34 pg (28-32) H 08/04/19 07:24 MCHC 35 % (32-34) H 08/04/19 07:24 RDW 14.0 % (13.2-15.2) 08/04/19 07:24 Plt Count 238 K/mm3 (140-440) 08/04/19 07:24 Lymph % (Auto) 37.8 % (13.4-35.0) H 08/04/19 07:24 [place] % (Auto) 7.5 % (0.0-7.3) H 08/04/19 07:24 Eos % (Auto) 4.6 % (0.0-4.3) H 08/04/19 07:24 Baso % (Auto) 0.7 % (0.0-1.8) 08/04/19 07:24 Lymph # 3.5 K/mm3 (1.2-5.4) 08/04/19 07:24 [place] # 0.7 K/mm3 (0.0-0.8) 08/04/19 07:24 Eos # 0.4 K/mm3 (0.0-0.4) 08/04/19 07:24 Baso # 0.1 K/mm3 (0.0-0.1) 08/04/19 07:24 Seg Neutrophils % 49.4 % (40.0-70.0) 08/04/19 07:24 Seg Neutrophils # 4.5 K/mm3 (1.8-7.7) 08/04/19 07:24 Sodium 140 mmol/L (137-145) 08/04/19 07:24 Potassium 3.9 mmol/L (3.6-5.0) 08/04/19 07:24 Chloride 104.2 mmol/L (98-107) 08/04/19 07:24 Carbon Dioxide 22 mmol/L (22-30) 08/04/19 07:24 Anion Gap 18 mmol/L 08/04/19 07:24 BUN 10 mg/dL (9-20) 08/04/19 07:24 Creatinine 0.8 mg/dL (0.8-1.5) 08/04/19 07:24 Estimated GFR > 60 ml/min 08/04/19 07:24 BUN/Creatinine Ratio 13 % 08/04/19 07:24 Glucose 105 mg/dL (75-100) H 08/04/19 07:24 POC Glucose 106 (70-105) H 08/03/19 14:25 Hemoglobin A1c 5.5 % (4-6) 08/04/19 07:24 Calcium 9.7 mg/dL (8.4-10.2) 08/04/19 07:24 Total Bilirubin 0.60 mg/dL (0.1-1.2) 08/04/19 07:24 AST 23 units/L (5-40) 08/04/19 07:24 ALT 26 units/L (7-56) 08/04/19 07:24 Alkaline Phosphatase 130 units/L (35-129) H 08/04/19 07:24 Total Protein 7.4 g/dL (6.3-8.2) 08/04/19 07:24 Albumin 4.0 g/dL (3.9-5) 08/04/19 07:24 Albumin/Globulin Ratio 1.2 % 08/04/19 07:24 Triglycerides 171 mg/dL (2-149) H 08/04/19 07:24 Cholesterol 150 mg/dL (50-199) 08/04/19 07:24 LDL Cholesterol Direct 83 mg/dL (50-130) 08/04/19 07:24 HDL Cholesterol 47 mg/dL (40-59) 08/04/19 07:24 Cholesterol/HDL Ratio 3.19 % 08/04/19 07:24 TSH 3.120 mlU/mL (0.270-4.200) 08/04/19 07:24 Thyroxine (T4) 6.6 ug/dL (4.0-12.0) 08/04/19 07:24 Free T3 Index 3.3 pg/mL (2.3-4.2) 08/04/19 07:24 Urine Color Yellow (Yellow) 08/04/19 06:48 Urine Turbidity Clear (Clear) 08/04/19 06:48 Urine pH 6.0 (5.0-7.0) 08/04/19 06:48 Ur Specific [place] 1.009 (1.003-1.030) 08/04/19 06:48 Urine Protein <15 mg/dl mg/dL (Negative) 08/04/19 06:48 Urine Glucose (UA) Neg mg/dL (Negative) 08/04/19 06:48 Urine Ketones Neg mg/dL (Negative) 08/04/19 06:48 Urine Blood Neg (Negative) 08/04/19 06:48 Urine Nitrite Neg (Negative) 08/04/19 06:48 Urine Bilirubin Neg (Negative) 08/04/19 06:48 Urine Urobilinogen < 2.0 mg/dL (<2.0) 08/04/19 06:48 Ur Leukocyte Esterase Neg (Negative) 08/04/19 06:48 Urine WBC (Auto) 3.0 /HPF (0.0-6.0) 08/04/19 06:48 Urine RBC (Auto) 4.0 /HPF (0.0-6.0) 08/04/19 06:48 Urine Mucus Few /HPF 08/04/19 06:48 Last Vital Signs Temp 98.2 F 08/09/19 07:44 Pulse 59 L 08/09/19 07:44 Resp 18 08/09/19 07:44 BP 117/54 08/09/19 07:44 Pulse Ox 95 08/09/19 07:44
[2019-08-09] MEDS: carvediloL 3.125 MG TAB PO SCH ×2 (09:08→21:24)
[2019-08-09] MEDS: METHYLPHENIDATE 5 MG TAB PO SCH ×2 (09:10→14:52)
[2019-08-09] MEDS: MEMANTINE 10 MG TAB PO SCH ×2 (09:10→11:51)
[2019-08-09] MEDS: TAMSULOSIN 0.4 MG CAP PO SCH (09:11)
[2019-08-09] MEDS: VENLAFAXINE 37.5 MG TAB PO SCH ×2 (09:11→21:25)
[2019-08-09] MEDS: risperiDONE 0.25 MG TAB PO SCH (09:11)
[2019-08-09] MEDS: CLOPIDOGREL 75 MG TAB PO SCH (09:11)
[2019-08-09] MEDS: SERTRALINE 50 MG TAB PO SCH (09:11)
[2019-08-09] MEDS: MELATONIN 5 MG TAB PO SCH (20:52)
[2019-08-09] MEDS: PRAVASTATIN 20 MG TAB PO SCH (21:25)
--- NOTE | 2019-08-10 06:55 | Progress Note ---
Subjective Date of service: 08/10/19 Principal diagnosis: Dementia/Suicidal thoughts Subjective Comment: Per Nurse Note: Patient has been pleasant and cooperative throughout the day. He talked to staff and reported feeling "bored" even though he attended groups. His daughter stated there were 2 magazines in his suitcase that he might enjoy. He stated he was "pleased" that we found them. He has spoken to his family by phone several times today. He is medication compliant. Patient denies si/hi/ah/vh. His appetite is good. Will continue to monitor patient for safety. Per Providers Note: Patient was seen by me this a.m., patient reports feeling fine sleeping good and feeling good. Patient expresses wishes to go home to be with . Patient reports eating good denies any SI HI also denies AVH. Reason for continued inpatient treatment: The patient has improved significantly continue to monitor for stability beyond 24 hours. MENTAL STATUS EXAMINATION General Appearance and Behavior: Age appropriate, good hygiene, wearing appropriate clothes, lying in bed, good contact, cooperative and polite Cooperation: Participating/engaged Psychomotor Behavior:unremarkable and within normal limits Mood: Good Affect and affective range: Congruent with mood Thought Process: Fluent/Logical Thought Content: Within reality Speech: Normal volume, Regular rate and rhythm Intellectual Functioning: Average Suicidal Ideation: Denies Homicidal Ideation: Denies Impulse Control: Unmpaired Insight and Judgment: Normal insight and judgment Memory: Normal Attention: Normal Orientation: Alert, oriented, Assessment and Plan - Psychiatric problem (1) Major depression in remission Current Visit: Yes Status: Acute (2) Dementia with behavioral disturbance Current Visit: Yes Status: Acute Physician Certification Treatment Plan Continue inpatient treatment with current medications Will continue q15 min safety checks. Will encourage the use of environmental modifications and non-pharmacologic approaches for the management of behavioral and psychological symptoms. Will continue current psych medications Monitor for medication side effects. Most recent medication adjustments: No changes made today Risperidone 0.25mg po daily to improve mood and decrease irritability Effexor 37.5mg po BID to decrease underlying depressive symptoms The patient will continue on medications for physical illnesses, and Hospitalist will closely monitor these Continue intensive physical and occupational therapies. Monitor patient's mood, sleep, appetite, and behavior closely. Encourage patient to participate in individual and group therapeutic sessions on the [place]. The patient's behavior, mood, sleep and appetite will be closely monitored. Patient will be enrolled in individual and group therapeutic sessions and encouraged to attend. Patient will be provided with a safe and structured environment. Patient's physical health needs will be addressed by the Hospitalist. Ho spitalist Consulted Labs including CBC, CMP, Lipid profile and Hemoglobin A1C ordered Social Assessment will be completed and the Fish Hatchery Assistant will work with patient and family to ensure a suitable and safe disposition The patient agreed on the treatment plan, understood the risk, benefit, alternative treatment, potential consequence of no treatment, and gave informed consent. Estimated period of time patient will need to remain in the hospital: [2] Plan for post-hospital care: [ Outpatient] Assessment and Plan - Patient Problems (1) Major depression in remission Current Visit: Yes Status: Acute (2) Dementia with behavioral disturbance Current Visit: Yes Status: Acute Medications and Allergies Allergies Allergy/AdvReac Type Severity Reaction Status Date / Time No Known Allergies Allergy Unverified 08/03/19 18:43 Home Medications Medication Instructions Recorded Confirmed Last Taken Type Clopidogrel [Plavix] 75 mg PO DAILY 08/03/19 08/03/19 Unknown History Memantine HCl 10 mg PO BID 08/03/19 08/03/19 Unknown History Pravastatin [Pravachol] 20 mg PO QHS 08/03/19 08/03/19 Unknown History Rosuvastatin Calcium 20 mg PO DAILY 08/03/19 08/03/19 Unknown History Sertraline [Zoloft] 50 mg PO DAILY 08/03/19 08/03/19 Unknown History Tamsulosin [Flomax] 0.4 mg PO DAILY 08/03/19 08/03/19 Unknown History Venlafaxine [Effexor] 37.5 mg PO DAILY 08/03/19 08/03/19 Unknown History carvediloL [Coreg] 3.125 mg PO BID 08/03/19 08/03/19 Unknown History Ciprofloxacin HCl [Ciprofloxacin 500 mg PO Q12HR 08/04/19 08/04/19 08/02/19 History TAB] 500 mg Melatonin 5 mg PO QHS 08/04/19 08/04/19 Unknown History traZODone 50 mg PO QHS 08/04/19 08/04/19 Unknown History Active Meds: Active Medications Carvedilol (Coreg) 3.125 mg PO BID [facility] Last Admin: 08/09/19 21:24 Dose: 3.125 mg Documented by: Clopidogrel Bisulfate (Plavix) 75 mg PO QDAY [facility] Last Admin: 08/09/19 09:11 Dose: 75 mg Documented by: Melatonin (Melatonin) 5 mg PO QHS@2100 [facility] Last Admin: 08/09/19 20:52 Dose: 5 mg Documented by: Memantine (Memantine) 10 mg PO 0800 [facility] Last Admin: 08/09/19 09:10 Dose: 10 mg Documented by: Memantine (Memantine) 10 mg PO 1200 [facility] Last Admin: 08/09/19 11:51 Dose: 10 mg Documented by: Methylphenidate HCl (Ritalin) 10 mg PO BID@0800,1500 [facility] Last Admin: 08/09/19 14:52 Dose: 10 mg Documented by: Pravastatin Sodium (Pravachol) 20 mg PO QHS [facility] Last Admin: 08/09/19 21:25 Dose: 20 mg Documented by: Risperidone (Risperdal) 0.25 mg PO DAILY [facility] Last Admin: 08/09/19 09:11 Dose: 0.25 mg Documented by: Tamsulosin HCl (Flomax) 0.4 mg PO QDAY [facility] Last Admin: 08/09/19 09:11 Dose: 0.4 mg Documented by: Venlafaxine HCl (Effexor) 37.5 mg PO BID [facility] Last Admin: 08/09/19 21:25 Dose: 37.5 mg Documented by: Results - Results Labs/Vitals: Laboratory Last Values WBC 9.2 K/mm3 (4.5-11.0) 08/04/19 07:24 RBC 4.13 M/mm3 (3.65-5.03) 08/04/19 07:24 Hgb 13.9 gm/dl (11.8-15.2) 08/04/19 07:24 Hct 39.2 % (35.5-45.6) 08/04/19 07:24 MCV 95 fl (84-94) H 08/04/19 07:24 MCH 34 pg (28-32) H 08/04/19 07:24 MCHC 35 % (32-34) H 08/04/19 07:24 RDW 14.0 % (13.2-15.2) 08/04/19 07:24 Plt Count 238 K/mm3 (140-440) 08/04/19 07:24 Lymph % (Auto) 37.8 % (13.4-35.0) H 08/04/19 07:24 [place] % (Auto) 7.5 % (0.0-7.3) H 08/04/19 07:24 Eos % (Auto) 4.6 % (0.0-4.3) H 08/04/19 07:24 Baso % (Auto) 0.7 % (0.0-1.8) 08/04/19 07:24 Lymph # 3.5 K/mm3 (1.2-5.4) 08/04/19 07:24 [place] # 0.7 K/mm3 (0.0-0.8) 08/04/19 07:24 Eos # 0.4 K/mm3 (0.0-0.4) 08/04/19 07:24 Baso # 0.1 K/mm3 (0.0-0.1) 08/04/19 07:24 Seg Neutrophils % 49.4 % (40.0-70.0) 08/04/19 07:24 Seg Neutrophils # 4.5 K/mm3 (1.8-7.7) 08/04/19 07:24 Sodium 140 mmol/L (137-145) 08/04/19 07:24 Potassium 3.9 mmol/L (3.6-5.0) 08/04/19 07:24 Chloride 104.2 mmol/L (98-107) 08/04/19 07:24 Carbon Dioxide 22 mmol/L (22-30) 08/04/19 07:24 Anion Gap 18 mmol/L 08/04/19 07:24 BUN 10 mg/dL (9-20) 08/04/19 07:24 Creatinine 0.8 mg/dL (0.8-1.5) 08/04/19 07:24 Estimated GFR > 60 ml/min 08/04/19 07:24 BUN/Creatinine Ratio 13 % 08/04/19 07:24 Glucose 105 mg/dL (75-100) H 08/04/19 07:24 POC Glucose 106 (70-105) H 08/03/19 14:25 Hemoglobin A1c 5.5 % (4-6) 08/04/19 07:24 Calcium 9.7 mg/dL (8.4-10.2) 08/04/19 07:24 Total Bilirubin 0.60 mg/dL (0.1-1.2) 08/04/19 07:24 AST 23 units/L (5-40) 08/04/19 07:24 ALT 26 units/L (7-56) 08/04/19 07:24 Alkaline Phosphatase 130 units/L (35-129) H 08/04/19 07:24 Total Protein 7.4 g/dL (6.3-8.2) 08/04/19 07:24 Albumin 4.0 g/dL (3.9-5) 08/04/19 07:24 Albumin/Globulin Ratio 1.2 % 08/04/19 07:24 Triglycerides 171 mg/dL (2-149) H 08/04/19 07:24 Cholesterol 150 mg/dL (50-199) 08/04/19 07:24 LDL Cholesterol Direct 83 mg/dL (50-130) 08/04/19 07:24 HDL Cholesterol 47 mg/dL (40-59) 08/04/19 07:24 Cholesterol/HDL Ratio 3.19 % 08/04/19 07:24 TSH 3.120 mlU/mL (0.270-4.200) 08/04/19 07:24 Thyroxine (T4) 6.6 ug/dL (4.0-12.0) 08/04/19 07:24 Free T3 Index 3.3 pg/mL (2.3-4.2) 08/04/19 07:24 Urine Color Yellow (Yellow) 08/04/19 06:48 Urine Turbidity Clear (Clear) 08/04/19 06:48 Urine pH 6.0 (5.0-7.0) 08/04/19 06:48 Ur Specific [place] 1.009 (1.003-1.030) 08/04/19 06:48 Urine Protein <15 mg/dl mg/dL (Negative) 08/04/19 06:48 Urine Glucose (UA) Neg mg/dL (Negative) 08/04/19 06:48 Urine Ketones Neg mg/dL (Negative) 08/04/19 06:48 Urine Blood Neg (Negative) 08/04/19 06:48 Urine Nitrite Neg (Negative) 08/04/19 06:48 Urine Bilirubin Neg (Negative) 08/04/19 06:48 Urine Urobilinogen < 2.0 mg/dL (<2.0) 08/04/19 06:48 Ur Leukocyte Esterase Neg (Negative) 08/04/19 06:48 Urine WBC (Auto) 3.0 /HPF (0.0-6.0) 08/04/19 06:48 Urine RBC (Auto) 4.0 /HPF (0.0-6.0) 08/04/19 06:48 Urine Mucus Few /HPF 08/04/19 06:48 Last Vital Signs Temp 98.2 F 08/09/19 07:44 Pulse 91 H 08/09/19 21:24 Resp 18 08/09/19 07:44 BP 122/71 08/09/19 21:24 Pulse Ox 95 08/09/19 07:44
[2019-08-10] MEDS: MEMANTINE 10 MG TAB PO SCH ×2 (08:00→11:34)
[2019-08-10] MEDS: METHYLPHENIDATE 5 MG TAB PO SCH ×2 (08:01→14:52)
[2019-08-10] MEDS: VENLAFAXINE 37.5 MG TAB PO SCH ×2 (09:46→21:38)
[2019-08-10] MEDS: TAMSULOSIN 0.4 MG CAP PO SCH (09:46)
[2019-08-10] MEDS: risperiDONE 0.25 MG TAB PO SCH (09:47)
[2019-08-10] MEDS: carvediloL 3.125 MG TAB PO SCH ×2 (09:47→21:39)
[2019-08-10] MEDS: SERTRALINE 50 MG TAB PO SCH (09:47)
[2019-08-10] MEDS: CLOPIDOGREL 75 MG TAB PO SCH (09:47)
[2019-08-10] MEDS: PRAVASTATIN 20 MG TAB PO SCH (21:38)
[2019-08-10] MEDS: MELATONIN 5 MG TAB PO SCH (21:38)
--- NOTE | 2019-08-11 06:49 | Progress Note ---
Subjective Date of service: 08/11/19 Principal diagnosis: Dementia/Suicidal thoughts Subjective Comment: Per Nurse Note: Pt received in the hallway. A&OX3. Pt is obsessed about his possible going home tomorrow requesting remote mortgage underwriter to ensure his walker is in the storage because he want to take it with him tomorrow. called and states they need 24 hours notice prior to pt d/c so they can put in place home health service before his arrival. Pt denies SI, HI, and pain. Pleasant and no acute di stress observed. Will continue to monitor. Per Providers Note: Patient was seen by me this a.m. in the social room, eating lunch and interacting socially. He reports feeling good, anticipating going home. He denies SI, HI and also denies AVH Reason for continued inpatient treatment: The patient has improved significantly continue to monitor for stability beyond 24 hours. MENTAL STATUS EXAMINATION General Appearance and Behavior: Age appropriate, good hygiene, wearing appropriate clothes, lying in bed, good contact, cooperative and polite Cooperation: Participating/engaged Psychomotor Behavior:unremarkable and within normal limits Mood: Good Affect and affective range: Congruent with mood Thought Process: Fluent/Logical Thought Content: Within reality Speech: Normal volume, Regular rate and rhythm Intellectual Functioning: Average Suicidal Ideation: Denies Homicidal Ideation: Denies Impulse Control: Unmpaired Insight and Judgment: Normal insight and judgment Memory: Normal Attention: Normal Orientation: Alert, oriented, Assessment and Plan - Psychiatric problem (1) Major depression in remission Current Visit: Yes Status: Acute (2) Dementia with behavioral disturbance Current Visit: Yes Status: Acute Physician Certification Treatment Plan Continue inpatient treatment with current medications Will continue q15 min safety checks. Will encourage the use of environmental modifications and non-pharmacologic approaches for the management of behavioral and psychological symptoms. Will continue current psych medications Monitor for medication side effects. Most recent medication adjustments: No changes made today Risperidone 0.25mg po daily to improve mood and decrease irritability Effexor 37.5mg po BID to decrease underlying depressive symptoms The patient will continue on medications for physical illnesses, and Hospitalist will closely monitor these Continue intensive physical and occupational therapies. Monitor patient's mood, sleep, appetite, and behavior closely. Encourage patient to participate in individual and group therapeutic sessions on the [place]. The patient's behavior, mood, sleep and appetite will be closely monitored. Patient will be enrolled in individual and group therapeutic sessions and encouraged to attend. Patient will be provided with a safe and structured environment. Patient's physical health needs will be addressed by the Hospitalist. Hospitalist Consulted Labs including CBC, CMP, Lipid profile and Hemoglobin A1C ordered Social Assessment will be completed and the Drafter Topographical will work with patient and family to ensure a suitable and safe disposition The patient agreed on the treatment plan, understood the risk, benefit, alternative treatment, potential consequence of no treatment, and gave informed consent. Estimated period of time patient will need to remain in the hospital: [1] Plan for post-hospital care: [Home health services recommended- pls see orders] Assessment and Plan - Patient Problems (1) Major depression in remission Current Visit: Yes Status: Acute (2) Dementia with behavioral disturbance Current Visit: Yes Status: Acute Medications and Allergies Allergies Allergy/AdvReac Type Severity Reaction Status Date / Time No Known Allergies Allergy Unverified 08/03/19 18:43 Home Medications Medication Instructions Recorded Confirmed Last Taken Type Clopidogrel [Plavix] 75 mg PO DAILY 08/03/19 08/03/19 Unknown History Memantine HCl 10 mg PO BID 08/03/19 08/03/19 Unknown History Pravastatin [Pravachol] 20 mg PO QHS 08/03/19 08/03/19 Unknown History Rosuvastatin Calcium 20 mg PO DAILY 08/03/19 08/03/19 Unknown History Sertraline [Zoloft] 50 mg PO DAILY 08/03/19 08/03/19 Unknown History Tamsulosin [Flomax] 0.4 mg PO DAILY 08/03/19 08/03/19 Unknown History Venlafaxine [Effexor] 37.5 mg PO DAILY 08/03/19 08/03/19 Unknown History carvediloL [Coreg] 3.125 mg PO BID 08/03/19 08/03/19 Unknown History Ciprofloxacin HCl [Ciprofloxacin 500 mg PO Q12HR 08/04/19 08/04/19 08/02/19 H istory TAB] 500 mg Melatonin 5 mg PO QHS 08/04/19 08/04/19 Unknown History traZODone 50 mg PO QHS 08/04/19 08/04/19 Unknown History Active Meds: Active Medications Carvedilol (Coreg) 3.125 mg PO BID [facility] Last Admin: 08/10/19 21:39 Dose: 3.125 mg Documented by: Clopidogrel Bisulfate (Plavix) 75 mg PO QDAY [facility] Last Admin: 08/10/19 09:47 Dose: 75 mg Documented by: Melatonin (Melatonin) 5 mg PO QHS@2100 [facility] Last Admin: 08/10/19 21:38 Dose: 5 mg Documented by: Memantine (Memantine) 10 mg PO 0800 [facility] Last Admin: 08/10/19 08:00 Dose: 10 mg Documented by: Memantine (Memantine) 10 mg PO 1200 [facility] Last Admin: 08/10/19 11:34 Dose: 10 mg Documented by: Methylphenidate HCl (Ritalin) 10 mg PO BID@0800,1500 [facility] Last Admin: 08/10/19 14:52 Dose: 10 mg Documented by: Pravastatin Sodium (Pravachol) 20 mg PO QHS [facility] Last Admin: 08/10/19 21:38 Dose: 20 mg Documented by: Risperidone (Risperdal) 0.25 mg PO DAILY [facility] Last Admin: 08/10/19 09:47 Dose: 0.25 mg Documented by: Sertraline HCl (Zoloft) 50 mg PO QDAY [facility] Last Admin: 08/10/19 09:47 Dose: 50 mg Documented by: Tamsulosin HCl (Flomax) 0.4 mg PO QDAY [facility] Last Admin: 08/10/19 09:46 Dose: 0.4 mg Documented by: Venlafaxine HCl (Effexor) 37.5 mg PO BID [facility] Last Admin: 08/10/19 21:38 Dose: 37.5 mg Documented by: Results - Results Labs/Vitals: Laboratory Last Values WBC 9.2 K/mm3 (4.5-11.0) 08/04/19 07:24 RBC 4.13 M/mm3 (3.65-5.03) 08/04/19 07:24 Hgb 13.9 gm/dl (11.8-15.2) 08/04/19 07:24 Hct 39.2 % (35.5-45.6) 08/04/19 07:24 MCV 95 fl (84-94) H 08/04/19 07:24 MCH 34 pg (28-32) H 08/04/19 07:24 MCHC 35 % (32-34) H 08/04/19 07:24 RDW 14.0 % (13.2-15.2) 08/04/19 07:24 Plt Count 238 K/mm3 (140-440) 08/04/19 07:24 Lymph % (Auto) 37.8 % (13.4-35.0) H 08/04/19 07:24 [place] % (Auto) 7.5 % (0.0-7.3) H 08/04/19 07:24 Eos % (Auto) 4.6 % (0.0-4.3) H 08/04/19 07:24 Baso % (Auto) 0.7 % (0.0-1.8) 08/04/19 07:24 Lymph # 3.5 K/mm3 (1.2-5.4) 08/04/19 07:24 [place] # 0.7 K/mm3 (0.0-0.8) 08/04/19 07:24 Eos # 0.4 K/mm3 (0.0-0.4) 08/04/19 07:24 Baso # 0.1 K/mm3 (0.0-0.1) 08/04/19 07:24 Seg Neutrophils % 49.4 % (40.0-70.0) 08/04/19 07:24 Seg Neutrophils # 4.5 K/mm3 (1.8-7.7) 08/04/19 07:24 Sodium 140 mmol/L (137-145) 08/04/19 07:24 Potassium 3.9 mmol/L (3.6-5.0) 08/04/19 07:24 Chloride 104.2 mmol/L (98-107) 08/04/19 07:24 Carbon Dioxide 22 mmol/L (22-30) 08/04/19 07:24 Anion Gap 18 mmol/L 08/04/19 07:24 BUN 10 mg/dL (9-20) 08/04/19 07:24 Creatinine 0.8 mg/dL (0.8-1.5) 08/04/19 07:24 Estimated GFR > 60 ml/min 08/04/19 07:24 BUN/Creatinine Ratio 13 % 08/04/19 07:24 Glucose 105 mg/dL (75-100) H 08/04/19 07:24 POC Glucose 106 (70-105) H 08/03/19 14:25 Hemoglobin A1c 5.5 % (4-6) 08/04/19 07:24 Calcium 9.7 mg/dL (8.4-10.2) 08/04/19 07:24 Total Bilirubin 0.60 mg/dL (0.1-1.2) 08/04/19 07:24 AST 23 units/L (5-40) 08/04/19 07:24 ALT 26 units/L (7-56) 08/04/19 07:24 Alkaline Phosphatase 130 units/L (35-129) H 08/04/19 07:24 Total Protein 7.4 g/dL (6.3-8.2) 08/04/19 07:24 Albumin 4.0 g/dL (3.9-5) 08/04/19 07:24 Albumin/Globulin Ratio 1.2 % 08/04/19 07:24 Triglycerides 171 mg/dL (2-149) H 08/04/19 07:24 Cholesterol 150 mg/dL (50-199) 08/04/19 07:24 LDL Cholesterol Direct 83 mg/dL (50-130) 08/04/19 07:24 HDL Cholesterol 47 mg/dL (40-59) 08/04/19 07:24 Cholesterol/HDL Ratio 3.19 % 08/04/19 07:24 TSH 3.120 mlU/mL (0.270-4.200) 08/04/19 07:24 Thyroxine (T4) 6.6 ug/dL (4.0-12.0) 08/04/19 07:24 Free T3 Index 3.3 pg/mL (2.3-4.2) 08/04/19 07:24 Urine Color Yellow (Yellow) 08/04/19 06:48 Urine Turbidity Clear (Clear) 08/04/19 06:48 Urine pH 6.0 (5.0-7.0) 08/04/19 06:48 Ur Specific [place] 1.009 (1.003-1.030) 08/04/19 06:48 Urine Protein <15 mg/dl mg/dL (Negative) 08/04/19 06:48 Urine Glucose (UA) Neg mg/dL (Negative) 08/04/19 06:48 Urine Ketones Neg mg/dL (Negative) 08/04/19 06:48 Urine Blood Neg (Negative) 08/04/19 06:48 Urine Nitrite Neg (Negative) 08/04/19 06:48 Urine Bilirubin Neg (Negative) 08/04/19 06:48 Urine Urobilinogen < 2.0 mg/dL (<2.0) 08/04/19 06:48 Ur Leukocyte Esterase Neg (Negative) 08/04/19 06:48 Urine WBC (Auto) 3.0 /HPF (0.0-6.0) 08/04/19 06:48 Urine RBC (Auto) 4.0 /HPF (0.0-6.0) 08/04/19 06:48 Urine Mucus Few /HPF 08/04/19 06:48 Last Vital Signs Temp 98.9 F 08/10/19 09:23 Pulse 86 08/10/19 21:39 Resp 18 08/10/19 09:23 BP 131/61 08/10/19 21:39 Pulse Ox 97 08/10/19 09:23
[2019-08-11] MEDS: MEMANTINE 10 MG TAB PO SCH ×2 (09:17→14:07)
[2019-08-11] MEDS: METHYLPHENIDATE 5 MG TAB PO SCH ×2 (09:17→13:59)
[2019-08-11] MEDS: risperiDONE 0.25 MG TAB PO SCH (09:18)
[2019-08-11] MEDS: SERTRALINE 50 MG TAB PO SCH (09:18)
[2019-08-11] MEDS: TAMSULOSIN 0.4 MG CAP PO SCH (09:18)
[2019-08-11] MEDS: CLOPIDOGREL 75 MG TAB PO SCH (09:18)
[2019-08-11] MEDS: VENLAFAXINE 37.5 MG TAB PO SCH ×2 (09:19→22:10)
[2019-08-11] MEDS: carvediloL 3.125 MG TAB PO SCH ×2 (09:42→22:10)
[2019-08-11] MEDS: MELATONIN 5 MG TAB PO SCH (22:03)
[2019-08-11] MEDS: PRAVASTATIN 20 MG TAB PO SCH (22:10)
--- NOTE | 2019-08-12 07:00 | Progress Note ---
Subjective Date of service: 08/12/19 Principal diagnosis: Dementia/Suicidal thoughts Subjective Comment: Per Nurse Note: 1717 Pt. a /x 3,self propelling in w/c, ate 100% of all his meals, med compliant, interactive with peers and staff. He took a long nap this afternoon. Awake now and back in the activity room. He denies SI/HI and denies hearing any voices. Per Providers Note: Patient evaluated this A.M. Bedside, very happy and cheerful, says he knows his going home today. Denies SI, HI or AVH. Reason for continued inpatient treatment: The patient has improved significantly continue to monitor for stability beyond 24 hours. MENTAL STATUS EXAMINATION General Appearance and Behavior: Age appropriate, good hygiene, wearing appropriate clothes, lying in bed, good contact, cooperative and polite Cooperation: Participating/engaged Psychomotor Behavior:unremarkable and within normal limits Mood: Good Affect and affective range: Congruent with mood Thought Process: Fluent/Logical Thought Content: Within reality Speech: Normal volume, Regular rate and rhythm Intellectual Functioning: Average Suicidal Ideation: Denies Homicidal Ideation: Denies Impulse Control: Unmpaired Insight and Judgment: Normal insight and judgment Memory: Normal Attention: Normal Orientation: Alert, oriented, Assessment and Plan - Psychiatric problem (1) Major depression in remission Current Visit: Yes Status: Acute (2) Dementia with behavioral disturbance Current Visit: Yes Status: Acute Physician Certification Treatment Plan Patient to be discharged today. Will continue q15 min safety checks. Will encourage the use of environmental modifications and non-pharmacologic approaches for the management of behavioral and psychological symptoms. Will continue current psych medications Monitor for medication side effects. Most recent medication adjustments: No changes made today Risperidone 0.25mg po daily to improve mood and decrease irritability Effexor 37.5mg po BID to decrease underlying depressive symptoms The patient will continue on medications for physical illnesses, and Hospitalist will closely monitor these Continue intensive physical and occupational therapies. Monitor patient's mood, sleep, appetite, and behavior closely. Encourage patient to participate in individual and group therapeutic sessions on the [place]. The patient's behavior, mood, sleep and appetite will be closely monitored. Patient will be enrolled in individual and group therapeutic sessions and encouraged to attend. Patient will be provided with a safe and structured environment. Patient's physical health needs will be addressed by the Hospitalist. Hospitalist Consulted Labs including CBC, CMP, Lipid profile and Hemoglobin A1C ordered Social Assessment will be completed and the Payloader Machine Operator will work with patient and family to ensure a suitable and safe disposition The patient agreed on the treatment plan, understood the risk, benefit, alternative treatment, potential consequence of no treatment, and gave informed consent. Estimated period of time patient will need to remain in the hospital: [0] Plan for post-hospital care: [Home health services recommended- pls see orders] Assessment and Plan - Patient Problems (1) Major depression in remission Current Visit: Yes Status: Acute (2) Dementia with behavioral disturbance Current Visit: Yes Status: Acute Qualifiers: Dementia type: unspecified type Qualified Code(s): F03.91 - Unspecified dementia with behavioral disturbance Medications and Allergies Allergies Allergy/AdvReac Type Severity Reaction Status Date / Time No Known Allergies Allergy Unverified 08/03/19 18:43 Home Medications Medication Instructions Recorded Confirmed Last Taken Type Clopidogrel [Plavix] 75 mg PO DAILY 08/03/19 08/03/19 Unknown History Memantine HCl 10 mg PO BID 08/03/19 08/03/19 Unknown History Tamsulosin [Flomax] 0.4 mg PO DAILY 08/03/19 08/03/19 Unknown History carvediloL [Coreg] 3.125 mg PO BID 08/03/19 08/03/19 Unknown History Melatonin [Melatonin 5MG TAB] 5 mg PO QHS@2100 #30 tablet 08/12/19 Unknown Rx Methylphenidate [Ritalin] 10 mg PO BID@0800,1500 tablet 08/12/19 Unknown Rx Sertraline [Zoloft] 50 mg PO DAILY #30 08/12/19 Unknown Rx Venlafaxine [Effexor] 37.5 mg PO DAILY #30 08/12/19 Unknown Rx risperiDONE [RisperDAL] 0.25 mg PO DAILY #30 tablet 08/12/19 Unknown Rx Active Meds: Active Medications Carvedilol (Coreg) 3.125 mg PO BID [facility] Last Admin: 08/11/19 22:10 Dose: 3.125 mg Documented by: Clopidogrel Bisulfate (Plavix) 75 mg PO QDAY [facility] Last Admin: 08/11/19 09:18 Dose: 75 mg Documented by: Melatonin (Melatonin) 5 mg PO QHS@2100 [facility] Last Admin: 08/11/19 22:03 Dose: 5 mg Documented by: Memantine (Memantine) 10 mg PO 0800 [facility] Last Admin: 08/11/19 09:17 Dose: 10 mg Documented by: Memantine (Memantine) 10 mg PO 1200 [facility] Last Admin: 08/11/19 14:07 Dose: 10 mg Documented by: Methylphenidate HCl (Ritalin) 10 mg PO BID@0800,1500 [facility] Last Admin: 08/11/19 13:59 Dose: 10 mg Documented by: Pravastatin Sodium (Pravachol) 20 mg PO QHS [facility] Last Admin: 08/11/19 22:10 Dose: 20 mg Documented by: Risperidone (Risperdal) 0.25 mg PO DAILY [facility] Last Admin: 08/11/19 09:18 Dose: 0.25 mg Documented by: Sertraline HCl (Zoloft) 50 mg PO QDAY [facility] Last Admin: 08/11/19 09:18 Dose: 50 mg Documented by: Tamsulosin HCl (Flomax) 0.4 mg PO QDAY [facility] Last Admin: 08/11/19 09:18 Dose: 0.4 mg Documented by: Venlafaxine HCl (Effexor) 37.5 mg PO BID [facility] Last Admin: 08/11/19 22:10 Dose: 37.5 mg Documented by: Results - Results Labs/Vitals: Laboratory Last Values WBC 9.2 K/mm3 (4.5-11.0) 08/04/19 07:24 RBC 4.13 M/mm3 (3.65-5.03) 08/04/19 07:24 Hgb 13.9 gm/dl (11.8-15.2) 08/04/19 07:24 Hct 39.2 % (35.5-45.6) 08/04/19 07:24 MCV 95 fl (84-94) H 08/04/19 07:24 MCH 34 pg (28-32) H 08/04/19 07:24 MCHC 35 % (32-34) H 08/04/19 07:24 RDW 14.0 % (13.2-15.2) 08/04/19 07:24 Plt Count 238 K/mm3 (140-440) 08/04/19 07:24 Lymph % (Auto) 37.8 % (13.4-35.0) H 08/04/19 07:24 [place] % (Auto) 7.5 % (0.0-7.3) H 08/04/19 07:24 Eos % (Auto) 4.6 % (0.0-4.3) H 08/04/19 07:24 Baso % (Auto) 0.7 % (0.0-1.8) 08/04/19 07:24 Lymph # 3.5 K/mm3 (1.2-5.4) 08/04/19 07:24 [place] # 0.7 K/mm3 (0.0-0.8) 08/04/19 07:24 Eos # 0.4 K/mm3 (0.0-0.4) 08/04/19 07:24 Baso # 0.1 K/mm3 (0.0-0.1) 08/04/19 07:24 Seg Neutrophils % 49.4 % (40.0-70.0) 08/04/19 07:24 Seg Neutrophils # 4.5 K/mm3 (1.8-7.7) 08/04/19 07:24 Sodium 140 mmol/L (137-145) 08/04/19 07:24 Potassium 3.9 mmol/L (3.6-5.0) 08/04/19 07:24 Chloride 104.2 mmol/L (98-107) 08/04/19 07:24 Carbon Dioxide 22 mmol/L (22-30) 08/04/19 07:24 Anion Gap 18 mmol/L 08/04/19 07:24 BUN 10 mg/dL (9-20) 08/04/19 07:24 Creatinine 0.8 mg/dL (0.8-1.5) 08/04/19 07:24 Estimated GFR > 60 ml/min 08/04/19 07:24 BUN/Creatinine Ratio 13 % 08/04/19 07:24 Glucose 105 mg/dL (75-100) H 08/04/19 07:24 POC Glucose 106 (70-105) H 08/03/19 14:25 Hemoglobin A1c 5.5 % (4-6) 08/04/19 07:24 Calcium 9.7 mg/dL (8.4-10.2) 08/04/19 07:24 Total Bilirubin 0.60 mg/dL (0.1-1.2) 08/04/19 07:24 AST 23 units/L (5-40) 08/04/19 07:24 ALT 26 units/L (7-56) 08/04/19 07:24 Alkaline Phosphatase 130 units/L (35-129) H 08/04/19 07:24 Total Protein 7.4 g/dL (6.3-8.2) 08/04/19 07:24 Albumin 4.0 g/dL (3.9-5) 08/04/19 07:24 Albumin/Globulin Ratio 1.2 % 08/04/19 07:24 Triglycerides 171 mg/dL (2-149) H 08/04/19 07:24 Cholesterol 150 mg/dL (50-199) 08/04/19 07:24 LDL Cholesterol Direct 83 mg/dL (50-130) 08/04/19 07:24 HDL Cholesterol 47 mg/dL (40-59) 08/04/19 07:24 Cholesterol/HDL Ratio 3.19 % 08/04/19 07:24 TSH 3.120 mlU/mL (0.270-4.200) 08/04/19 07:24 Thyroxine (T4) 6.6 ug/dL (4.0-12.0) 08/04/19 07:24 Free T3 Index 3.3 pg/mL (2.3-4.2) 08/04/19 07:24 Urine Color Yellow (Yellow) 08/04/19 06:48 Urine Turbidity Clear (Clear) 08/04/19 06:48 Urine pH 6.0 (5.0-7.0) 08/04/19 06:48 Ur Specific [place] 1.009 (1.003-1.030) 08/04/19 06:48 Urine Protein <15 mg/dl mg/dL (Negative) 08/04/19 06:48 Urine Glucose (UA) Neg mg/dL (Negative) 08/04/19 06:48 Urine Ketones Neg mg/dL (Negative) 08/04/19 06:48 Urine Blood Neg (Negative) 08/04/19 06:48 Urine Nitrite Neg (Negative) 08/04/19 06:48 Urine Bilirubin Neg (Negative) 08/04/19 06:48 Urine Urobilinogen < 2.0 mg/dL (<2.0) 08/04/19 06:48 Ur Leukocyte Esterase Neg (Negative) 08/04/19 06:48 Urine WBC (Auto) 3.0 /HPF (0.0-6.0) 08/04/19 06:48 Urine RBC (Auto) 4.0 /HPF (0.0-6.0) 08/04/19 06:48 Urine Mucus Few /HPF 08/04/19 06:48 Last Vital Signs Temp 97.4 F L 08/11/19 19:56 Pulse 84 08/11/19 22:10 Resp 18 08/11/19 19:56 BP 117/61 08/11/19 22:10 Pulse Ox 99 08/11/19 19:56
[2019-08-12] MEDS: VENLAFAXINE 37.5 MG TAB PO SCH (09:00)
[2019-08-12] MEDS: METHYLPHENIDATE 5 MG TAB PO SCH (09:00)
[2019-08-12] MEDS: SERTRALINE 50 MG TAB PO SCH (09:01)
[2019-08-12] MEDS: risperiDONE 0.25 MG TAB PO SCH (09:01)
[2019-08-12] MEDS: CLOPIDOGREL 75 MG TAB PO SCH (09:01)
[2019-08-12] MEDS: MEMANTINE 10 MG TAB PO SCH (09:02)
[2019-08-12] MEDS: TAMSULOSIN 0.4 MG CAP PO SCH (10:02)
[2019-08-12] MEDS: carvediloL 3.125 MG TAB PO SCH (10:02)
[2019-08-12 10:04] VITALS: BP 122/65
--- NOTE | 2019-08-12 11:07 | Discharge Summary ---
Providers - Providers Date of Admission: 08/03/19 10:16 Date of discharge: 08/12/19 Attending physician: YESI CASON MD 08/03/19 10:16 Consult to Physician [CONS] Routine Comment: Consulting Provider: WES HERNANDEZ Physician Instructions: Reason For Exam: Medical Management Primary care physician: CAFE SERVER Hospitalization Reason for admission: Danger to self, Danger to others, Impaired reality testing Condition: Good Hospital course: The patient was provided inpatient psychiatric treatment with safe and supportive environment, group therapy, psychiatric medication, medication adjustment, adverse effect monitor, medical evaluation, medical treatment, social service assessment, social support meeting and placement assessment. The patients behavior, anxiety and compliance to treatment are improved and stabilized. At the time of discharge, the patient had no suicidal ideas, no homi cidal ideas, no aggressive thoughts, no endangering behavior and no debilitating adverse effects. The DPOA/guardian and family agreed on the treatment plan, understood the risk, benefit, alternative treatment, potential consequence of no treatment, and gave informed consent. Disposition: [id number]/[place]-06 HOME [facility] Allergies/Adverse Reactions: Allergies No Known Allergies Allergy (Unverified 08/03/19 18:43) Vital Signs: Last Vital Signs Temp 97.4 F L 08/11/19 19:56 Pulse 72 08/12/19 10:02 Resp 18 08/11/19 19:56 BP 122/65 08/12/19 10:02 Pulse Ox 99 08/11/19 19:56 Last Lab: Laboratory Last Values WBC 9.2 K/mm3 (4.5-11.0) 08/04/19 07:24 RBC 4.13 M/mm3 (3.65-5.03) 08/04/19 07:24 Hgb 13.9 gm/dl (11.8-15.2) 08/04/19 07:24 Hct 39.2 % (35.5-45.6) 08/04/19 07:24 MCV 95 fl (84-94) H 08/04/19 07:24 MCH 34 pg (28-32) H 08/04/19 07:24 MCHC 35 % (32-34) H 08/04/19 07:24 RDW 14.0 % (13.2-15.2) 08/04/19 07:24 Plt Count 238 K/mm3 (140-440) 08/04/19 07:24 Lymph % (Auto) 37.8 % (13.4-35.0) H 08/04/19 07:24 [place] % (Auto) 7.5 % (0.0-7.3) H 08/04/19 07:24 Eos % (Auto) 4.6 % (0.0-4.3) H 08/04/19 07:24 Baso % (Auto) 0.7 % (0.0-1.8) 08/04/19 07:24 Lymph # 3.5 K/mm3 (1.2-5.4) 08/04/19 07:24 [place] # 0.7 K/mm3 (0.0-0.8) 08/04/19 07:24 Eos # 0.4 K/mm3 (0.0-0.4) 08/04/19 07:24 Baso # 0.1 K/mm3 (0.0-0.1) 08/04/19 07:24 Seg Neutrophils % 49.4 % (40.0-70.0) 08/04/19 07:24 Seg Neutrophils # 4.5 K/mm3 (1.8-7.7) 08/04/19 07:24 Sodium 140 mmol/L (137-145) 08/04/19 07:24 Potassium 3.9 mmol/L (3.6-5.0) 08/04/19 07:24 Chloride 104.2 mmol/L (98-107) 08/04/19 07:24 Carbon Dioxide 22 mmol/L (22-30) 08/04/19 07:24 Anion Gap 18 mmol/L 08/04/19 07:24 BUN 10 mg/dL (9-20) 08/04/19 07:24 Creatinine 0.8 mg/dL (0.8-1.5) 08/04/19 07:24 Estimated GFR > 60 ml/min 08/04/19 07:24 BUN/Creatinine Ratio 13 % 08/04/19 07:24 Glucose 105 mg/dL (75-100) H 08/04/19 07:24 POC Glucose 106 (70-105) H 08/03/19 14:25 Hemoglobin A1c 5.5 % (4-6) 08/04/19 07:24 Calcium 9.7 mg/dL (8.4-10.2) 08/04/19 07:24 Total Bilirubin 0.60 mg/dL (0.1-1.2) 08/04/19 07:24 AST 23 units/L (5-40) 08/04/19 07:24 ALT 26 units/L (7-56) 08/04/19 07:24 Alkaline Phosphatase 130 units/L (35-129) H 08/04/19 07:24 Total Protein 7.4 g/dL (6.3-8.2) 08/04/19 07:24 Albumin 4.0 g/dL (3.9-5) 08/04/19 07:24 Albumin/Globulin Ratio 1.2 % 08/04/19 07:24 Triglycerides 171 mg/dL (2-149) H 08/04/19 07:24 Cholesterol 150 mg/dL (50-199) 08/04/19 07:24 LDL Cholesterol Direct 83 mg/dL (50-130) 08/04/19 07:24 HDL Cholesterol 47 mg/dL (40-59) 08/04/19 07:24 Cholesterol/HDL Ratio 3.19 % 08/04/19 07:24 TSH 3.120 mlU/mL (0.270-4.200) 08/04/19 07:24 Thyroxine (T4) 6.6 ug/dL (4.0-12.0) 08/04/19 07:24 Free T3 Index 3.3 pg/mL (2.3-4.2) 08/04/19 07:24 Urine Color Yellow (Yellow) 08/04/19 06:48 Urine Turbidity Clear (Clear) 08/04/19 06:48 Urine pH 6.0 (5.0-7.0) 08/04/19 06:48 Ur Specific [place] 1.009 (1.003-1.030) 08/04/19 06:48 Urine Protein <15 mg/dl mg/dL (Negative) 08/04/19 06:48 Urine Glucose (UA) Neg mg/dL (Negative) 08/04/19 06:48 Urine Ketones Neg mg/dL (Negative) 08/04/19 06:48 Urine Blood Neg (Negative) 08/04/19 06:48 Urine Nitrite Neg (Negative) 08/04/19 06:48 Urine Bilirubin Neg (Negative) 08/04/19 06:48 Urine Urobilinogen < 2.0 mg/dL (<2.0) 08/04/19 06:48 Ur Leukocyte Esterase Neg (Negative) 08/04/19 06:48 Urine WBC (Auto) 3.0 /HPF (0.0-6.0) 08/04/19 06:48 Urine RBC (Auto) 4.0 /HPF (0.0-6.0) 08/04/19 06:48 Urine Mucus Few /HPF 08/04/19 06:48 - Discharge Diagnoses (1) Major depression in remission Status: Acute (2) Dementia with behavioral disturbance Status: Acute Qualifiers: Dementia type: unspecified type Qualified Code(s): F03.91 - Unspecified dementia with behavioral disturbance Core Measure Documentation - Palliative Care Palliative Care/ Comfort Measures: Not Applicable - Core Measures Any of the following diagnoses?: none Exam - Constitutional Vitals: Temp Pulse Resp BP Pulse Ox 97.4 F L 72 18 122/65 99 08/11/19 19:56 08/12/19 10:02 08/11/19 19:56 08/12/19 10:02 08/11/19 19:56 - EENT Eyes: Present: PERRL, EOM intact ENT: hearing intact, clear oral mucosa - Neck Neck: Present: supple, normal ROM - Respiratory Respiratory effort: normal - Abdominal Male genitourinary: Present: normal - Integumentary Integumentary: Present: clear, warm, dry Plan Activity: advance as tolerated Weight Bearing Status: Weight Bear as Tolerated Care Plan Goals: Maintain good and stable mental health. The patient should be compliant with medications, not to use drugs and not to drink alcohol. The patient understands that if suicidal ideas, homicidal ideas, or any endangering thoughts arise, the patient should immediately seek for emergent assistance including but not limited to crisis hot line and emergency room. Follow up with outpatient Psychiatrist and PCP within 7 - 14 days of discharge. Follow up with: PRIMARY CARE, [Primary Care Provider] - 7 Days Prescriptions: Venlafaxine [Effexor] 37.5 mg PO DAILY #30 Melatonin [Melatonin 5MG TAB] 5 mg PO QHS@2100 #30 tablet risperiDONE [RisperDAL] 0.25 mg PO DAILY #30 tablet Sertraline [Zoloft] 50 mg PO DAILY #30
== END 2019-08-12 11:33 | disposition home health service (06) | DRG 884 ==
LOC: 3A 09:26 → UNDOADMIN 09:26 → 5A 10:16
PROVIDERS: ADMIT Psychiatry & Neurology Psychiatry; ATTEND Psychiatry & Neurology Psychiatry
DX: F03.91 Unspecified dementia, unspecified severity, with behavioral disturbance (principal); I25.10 Atherosclerotic heart disease of native coronary artery without angina pectoris; I10 Essential (primary) hypertension; N40.0 Benign prostatic hyperplasia without lower urinary tract symptoms; E78.5 Hyperlipidemia, unspecified; F32.5 Major depressive disorder, single episode, in full remission; Z79.899 Other long term (current) drug therapy
CPT/HCPCS: 36415; 80053; 80061; 81001; 82962; 83036; 84436; 84443; 84481; 85025; G0378; A9270-GY